=== PATIENT | female | born 1980 | race Caucasian/White ===

== ENCOUNTER 2017-01-16 01:10 | Emergency (ER) | payer OTHER ==
[~2017-01-16] VITALS: Ht 170.2 cm; Wt 63.5 kg
[~2017-01-16 01:10] MED LIST: ATI.5 PO; LORA-476 PO; METO25TA PO
[2017-01-16 01:29] VITALS: BP 105/73
--- NOTE | 2017-01-16 02:58 | NUR ---
Patient to OF.
--- NOTE | 2017-01-16 03:00 | NUR ---
37 Y/O HERE W/C/O MED REFILL ON METROPOLOL. DENIES ANY PAIN. ER MD NOTIFIED. NO S/S OF DISTRESS NOTED.
[2017-01-16 03:25] VITALS: BP 101/68
--- NOTE | 2017-01-16 03:25 | NUR ---
Patient discharged with v/s stable. Written and verbal after care instructions given and explained. Patient alert, oriented and verbalized understanding of instructions. Ambulatory with steady gait. All questions addressed prior to discharge. ID band removed. Patient advised to follow up with PMD. Rx of METOPROLOL 25MG given. Patient educated on indication of medication including possible reaction and side effects. Opportunity to ask questions provided and answered.
== END 2017-01-16 03:25 | disposition home or self-care (01) ==
LOC: MED 01:10
DX: Z76.0 Encounter for issue of repeat prescription (principal); F41.9 Anxiety disorder, unspecified; J45.909 Unspecified asthma, uncomplicated; F17.210 Nicotine dependence, cigarettes, uncomplicated; Z71.6 Tobacco abuse counseling
CPT/HCPCS: 99283

== ENCOUNTER 2017-03-13 23:17 | Emergency (ER) | payer OTHER ==
[~2017-03-13] VITALS: Ht 170.2 cm; Wt 61.2 kg
[~2017-03-13 23:17] MED LIST changes: -ATI.5 PO; +ATIVAN0.5 MG PO; +ATIVAN1 MG PO; +LOPRESSOR25 MG PO; -LORA-476 PO; -METO25TA PO; +SEROQUEL25 MG PO; +SUDAFED30 M1; +VICODIN 5/500 M1 TAB; +VICODIN 5/500 M1 TAB PO
[2017-03-13 23:31] VITALS: BP 137/84
--- NOTE | 2017-03-14 00:36 | NUR ---
PATIENT AMBULATED TO OF2.
--- NOTE | 2017-03-14 00:39 | NUR ---
37Y/F PT. PRESENTS TO ED WITH C/O ANXIETY X 6 HRS.PT. ATATES DRANK BEER AND SMOKE THEN FELT HEART PALPITATION. TOOK METOPROLOL 30 MINS BEFORE PT. ARRIVED FOR PALPITATION BUT STILL EXIST. HX. TACHY CARDIA, ON METOPROLOL. AAO X4, AMBULATORY WITH STEADY GAIT. RESPIRATIONS ROOM AIR, EVEN AND UNLABORED. NO C/O PAIN AND DISCOMFORT AT THIS TIME. VSS, NO S/SX OF DISTRESS. ER MD MADE AWARE OF PT. STATUS.
[2017-03-14 01:11] VITALS: BP 120/74
--- NOTE | 2017-03-14 01:24 | NUR ---
PATIENT BEING EVALUATED BY DR. ESPINOZA.
--- NOTE | 2017-03-14 01:30 | NUR ---
PATIENT ELOPED FROM FACILITY. DISCHARGE INSTRUCTIONS NOT GIVEN TO PATIENT. DR. Zamora NOTIFIED.
== END 2017-03-14 01:30 | disposition left against medical advice (07) ==
LOC: MED 23:17
DX: F41.9 Anxiety disorder, unspecified (principal); I10 Essential (primary) hypertension; J45.909 Unspecified asthma, uncomplicated; F17.210 Nicotine dependence, cigarettes, uncomplicated

== ENCOUNTER 2017-11-16 12:24 | Emergency (ER) | payer OTHER ==
[~2017-11-16] VITALS: Ht 170.2 cm; Wt 57.4 kg
[~2017-11-16 12:24] MED LIST changes: +ATI.5 PO; -ATIVAN0.5 MG PO; -ATIVAN1 MG PO; -LOPRESSOR25 MG PO; +LORA-476 PO; +METO25TA PO; -SEROQUEL25 MG PO; -SUDAFED30 M1; -VICODIN 5/500 M1 TAB; -VICODIN 5/500 M1 TAB PO
[2017-11-16 12:29] VITALS: BP 146/85
--- NOTE | 2017-11-16 12:32 | NUR ---
PT AA&OX4 WITH EVEN AND STEADY GAIT; PT TO LOBBY AWAITING OPEN BED.
--- NOTE | 2017-11-16 14:01 | NUR ---
PATIENT IS A 37 YO FEMALE BIB SELF FOR MEDICATION REFILL FOR BETA POLA HAS INCREASED HEART FROM DRINKING CAFFIENE AWAKE AND ALERT DENIES PAIN NO DISTRESS NOTED.
[2017-11-16 14:16] VITALS: BP 146/85
--- NOTE | 2017-11-16 14:17 | NUR ---
Patient discharged with v/s stable. Written and verbal after care instructions given and explained. Patient alert, oriented and verbalized understanding of instructions. Ambulatory with steady gait. All questions addressed prior to discharge. ID band removed. Patient advised to follow up with PMD. Rx of METOPROLOL given. Patient educated on indication of medication including possible reaction and side effects. Opportunity to ask questions provided and answered.
== END 2017-11-16 14:17 | disposition home or self-care (01) ==
LOC: MED 12:24
DX: Z76.0 Encounter for issue of repeat prescription (principal); R00.0 Tachycardia, unspecified; Z79.899 Other long term (current) drug therapy
CPT/HCPCS: 99283

== ENCOUNTER 2018-01-25 19:18 | Emergency (ER) | payer OTHER ==
[~2018-01-25] VITALS: Ht 170.2 cm; Wt 59.0 kg
[2018-01-25 19:26] VITALS: BP 110/82
--- NOTE | 2018-01-25 19:45 | NUR ---
PT.AMBULATED TO ER CHB
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
--- NOTE | 2018-01-25 20:10 | NUR ---
DR. BELTRAN PERFORMS SUTURE AT BED SIDE. 1% LIDOCAINE INJ SUBQ 3 ML, NDAR.
[2018-01-25] MEDS ORDERED: LIDOCAINE MPF 1% - **ER/OR** 5 ML ONE (20:22)
--- NOTE | 2018-01-25 20:45 | NUR ---
Patient discharged with v/s stable. Written and verbal after care instructions given and explained. Patient verbalized understanding. Ambulatory with steady gait. All questions addressed prior to discharge. Advised to follow up with PMD.
[2018-01-26 02:22] VITALS: BP 110/82
== END 2018-01-25 20:45 | disposition home or self-care (01) ==
LOC: MED 19:18
DX: S61.411A Laceration without foreign body of right hand, initial encounter (principal); W25.XXXA Contact with sharp glass, initial encounter; Y93.89 Activity, other specified; Y92.89 Other specified places as the place of occurrence of the external cause; Y99.8 Other external cause status
CPT/HCPCS: 12001; 73130; 73660; 99284; J2001

== ENCOUNTER 2019-02-24 03:55 | Emergency (ER) | payer OTHER ==
[~2019-02-24] VITALS: Ht 172.7 cm; Wt 59.0 kg
[2019-02-24 04:03] VITALS: BP 121/60
--- NOTE | 2019-02-24 04:04 | NUR ---
TO BED # 09 AMBULATORY
--- NOTE | 2019-02-24 04:07 | NUR ---
PT AMBULATED TO BED #9
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
--- NOTE | 2019-02-24 04:15 | NUR ---
Dr. Feliz evaluating patient at bedside.
[2019-02-24 04:30] VITALS: BP 121/60
--- NOTE | 2019-02-24 04:30 | NUR ---
Patient discharged with v/s stable. Written and verbal after care instructions given and explained. Patient verbalized understanding. Ambulatory with to car. All questions addressed prior to discharge. Advised to follow up with PMD.
== END 2019-02-24 04:30 | disposition home or self-care (01) ==
LOC: MED 03:55
DX: R20.0 Anesthesia of skin (principal); T42.6X5A Adverse effect of other antiepileptic and sedative-hypnotic drugs, initial encounter; F17.210 Nicotine dependence, cigarettes, uncomplicated; Z79.899 Other long term (current) drug therapy; Y92.89 Other specified places as the place of occurrence of the external cause
CPT/HCPCS: 99281

== ENCOUNTER 2019-04-07 01:40 | Emergency (ER) | payer OTHER ==
[~2019-04-07] VITALS: Ht 172.7 cm; Wt 59.0 kg
[2019-04-07 01:49] VITALS: BP 134/78
[2019-04-07 01:52] VITALS: BP 134/78
--- NOTE | 2019-04-07 01:52 | NUR ---
TO LOBBY A/W BED , AMBULATORY
--- NOTE | 2019-04-07 02:38 | NUR ---
PATIENT LEFT WITHOUT BEING SEEN BY DR. SMALL. NO FURTHER CARE PROVIDED FOR PATIENT.
== END 2019-04-07 02:38 | disposition left against medical advice (07) ==
LOC: MED 01:40
DX: R20.0 Anesthesia of skin (principal); Z53.21 Procedure and treatment not carried out due to patient leaving prior to being seen by health care provider

== ENCOUNTER 2019-04-15 03:12 | Emergency (ER) | payer OTHER ==
[~2019-04-15] VITALS: Ht 172.7 cm; Wt 63.5 kg
[2019-04-15 03:15] VITALS: BP 127/84
--- NOTE | 2019-04-15 03:15 | NUR ---
TO BED # 11 AMBULATORY
[2019-04-15 03:30] VITALS: BP 127/84
--- NOTE | 2019-04-15 03:30 | NUR ---
39 Y/O F PRESENTED TO ED WITH C/O PALPITATIONS X 2DAYS. AAOX4. PER PT, " A FEW DAYS AGO I DRANK 3-4 CUPS OF COFFEE TO KEEP ME AWAKE. TODAY I DRANK MONSTER AND NOW MY HEART FEELS FUNNY." PT EXPERIENCED THESE PALPITATIONS X6 MONTHS AGO AND WAS GIVEN METOPROLOL, PER PT "IT WAS EFFECTIVE". PT DID NOT FOLLOW UP WITH PCP BECAUSE " I DONT WANT MY DOCTOR TO THINK SOMETHING IS REALLY WRONG WITH ME". HR 82, NSR. ERMD NOTIFIED. WILL CONTINUE TO MONITOR.
== END 2019-04-15 03:57 | disposition home or self-care (01) ==
LOC: MED 03:12
DX: R00.2 Palpitations (principal); Z79.899 Other long term (current) drug therapy
CPT/HCPCS: 93005; 99283

== ENCOUNTER 2019-04-15 11:13 | Emergency (ER) | payer OTHER ==
[~2019-04-15] VITALS: Ht 172.7 cm; Wt 61.2 kg
[2019-04-15 11:16] VITALS: BP 122/78
--- NOTE | 2019-04-15 11:26 | NUR ---
PATIENT AMBULATED TO ER BED 8.
--- NOTE | 2019-04-15 11:27 | NUR ---
PATIENT PRESENTS TO ED WITH C/O HEART PALPITATIONS. PT DENIES ANY CHEST PAIN, SHE STATED SHE CONSUMED A "COFFEE AND MONSTER BLEND" YESTERDAY. +INSOMNIA. DENIES N/V; HR 98 AT THIS TIME. PT DENIES SOB; PATIENT STATES PAIN OF 0/10 AT THIS TIME; VSS; PATIENT POSITIONED FOR COMFORT; HOB ELEVATED; BEDRAILS UP X1; BED DOWN. PENDING ER MD EVALUATION.
[2019-04-15 11:35] VITALS: BP 121/83
[2019-04-15] MEDS ORDERED: NACL 0.9% 1,000 ML IV ONE (11:45)
--- NOTE | 2019-04-15 11:54 | NUR ---
Patient does not wish to proceed with medical care recommended by Dr Feliz. Patient given information related to possible complications, up to and including , which could occur as a result of leaving hospital at this time. Patient verbalizes understanding of risks involved leaving against medical advice. Patient has signed AMA form.
[2019-04-15 12:05] LABS: BARBITURATE, URINE NEG. ng/ml (NEG <=200); BENZODIAZEPINE, URINE NEG. ng/mL (NEG <=200); CANNABINOID, URINE NEG. ng/mL (NEG <=50); COCAINE, URINE NEG. ng/mL (NEG <=300); OPIATE, URINE NEG. ng/mL (NEG <=2000); PHENCYCLIDINE SCREEN,URINE NEG. ng/mL (NEG <=25)
== END 2019-04-15 11:50 | disposition left against medical advice (07) ==
LOC: MED 11:13
DX: R07.89 Other chest pain (principal); R00.2 Palpitations; F17.210 Nicotine dependence, cigarettes, uncomplicated; Z79.899 Other long term (current) drug therapy
CPT/HCPCS: 80305; 81002; 81025; 93005; 99284

== ENCOUNTER 2019-04-15 16:28 | Emergency (ER) | payer OTHER ==
[~2019-04-15] VITALS: Ht 172.7 cm; Wt 61.2 kg
[2019-04-15 16:31] VITALS: BP 141/103
--- NOTE | 2019-04-15 16:31 | NUR ---
PT C/O COUGH, FLUID FROM RIGHT EYE & R EAR AFTER LEFT ER FOR HEART PALPITATION X 6 HOUR. MD TO SEE THE PT. RESTING IN [facility] AT THIS TIME. WILL COTNTINUE TO QING PT.
--- NOTE | 2019-04-15 16:37 | NUR ---
PT AMBULATED TO ER CHAIR C
[2019-04-15] MEDS ORDERED: NACL 0.9% 1,000 ML IV ONE (16:55)
--- NOTE | 2019-04-15 16:56 | NUR ---
pt amb to er bed 11
[2019-04-15] MEDS: KETOROLAC 15 MG/ML VIAL IVP ONE ×2 (17:09→17:50)
[2019-04-15 17:15] VITALS: BP 141/103
--- NOTE | 2019-04-15 17:15 | NUR ---
PT LEFT WITHOUT SIGNING PAPER. REFUSED ALL MEDS. IV TAKEN OUT. PT WALKED OUT OF THE HOSPITAL BY HERSELF. Addendum: 04/15/19 at 1758 by MEDBSS PATIENT ELOPED FROM FACILITY. DISCHARGE INSTRUCTIONS NOT GIVEN TO PATIENT. DR. MIMS NOTIFIED.
== END 2019-04-15 17:15 | disposition home or self-care (01) ==
LOC: MED 16:28
DX: R00.0 Tachycardia, unspecified (principal); F17.210 Nicotine dependence, cigarettes, uncomplicated; Z79.899 Other long term (current) drug therapy
CPT/HCPCS: 99283; J7030; J1885

== ENCOUNTER 2019-04-16 08:02 | Emergency (ER) | payer OTHER ==
[~2019-04-16] VITALS: Ht 172.7 cm; Wt 63.5 kg
[2019-04-16 08:06] VITALS: BP 110/86
--- NOTE | 2019-04-16 08:20 | NUR ---
PT BIB SELD C/O DRY THROAT, COUGH ,NOSE PAIN X 2 WEEKS. PT REPORTS ITCHY/SHARP PAIN IN NOSE AND THROAT AT 6/10. PT REPORTS PRODUCTIVE COUGH WITH THICK GEL LIKE CLEAR MUCUS. PT REPORTS DIFFICULTY SLEEPING AND GENERALIZED WEAKNESS. PT WAS SEEN HERE X 3 TIMES YESTERDAY & WENT TO [facility] YESTERDAY. MED HX;DENIES RX:TYLENOL, ADVIL, METOPROLOL
[2019-04-16 08:58] LABS: APPEARANCE,URINE CLEAR (CLEAR); BILIRUBIN,URINE 1+ (NEGATIVE); BLOOD, URINE 3+ (NEGATIVE); COLOR,URINE YELLOW (YELLOW); LEUKOCYTE ESTERASE ,URINE NEGATIVE (NEGATIVE); NITRITE, URINE NEGATIVE (NEGATIVE); UGLUCOSE NEGATIVE (NEGATIVE)
[2019-04-16 09:03] LABS: BARBITURATE, URINE NEG. ng/ml (NEG <=200); BENZODIAZEPINE, URINE NEG. ng/mL (NEG <=200); CANNABINOID, URINE NEG. ng/mL (NEG <=50); COCAINE, URINE NEG. ng/mL (NEG <=300); OPIATE, URINE NEG. ng/mL (NEG <=2000); PHENCYCLIDINE SCREEN,URINE NEG. ng/mL (NEG <=25)
[2019-04-16] MEDS ORDERED: ALBUTEROL SULFATE/IPRATROPIU 3 ML SOL IH ONE (09:10)
[2019-04-16] MEDS ORDERED: hydrOXYzine HCL 25 MG TAB PO ONE (09:10)
[2019-04-16] MEDS ORDERED: predniSONE 20 MG TAB PO ONE (09:10)
[2019-04-16 09:18] LABS: WBC,URINE 0-5 /HPF (0-5)
--- NOTE | 2019-04-16 09:39 | NUR ---
[facility] THERAPY AND RES[IRATORY DRUG GIVEN ORDERED ENCOURAGED PATIENT FOR INTERMITTENT DEEP BREATHING DURING THERAPY
[2019-04-16 09:50] VITALS: BP 109/59
--- NOTE | 2019-04-16 09:51 | NUR ---
Patient discharged with v/s stable. Written and verbal after care instructions given and explained. Patient alert, oriented and verbalized understanding of instructions. Ambulatory with steady gait. All questions addressed prior to discharge. ID band removed. Patient advised to follow up with PMD. Rx of FLONASE, ZYRTEC given. Patient educated on indication of medication including possible reaction and side effects. Opportunity to ask questions provided and answered.
--- NOTE | 2019-04-16 09:51 | NUR ---
Note triny in EDM - 04/16/19 at 0953 by MEDEZS Patient discharged with v/s stable. Written and verbal after care instructions given and explained. Patient alert, oriented and verbalized understanding of instructions. Ambulatory with steady gait. All questions addressed prior to discharge. ID band removed. Patient advised to follow up with PMD. Rx of AMIRAH BANG given. Patient educated on indication of medication including possible reaction and side effects. Opportunity to ask questions provided and answered.
== END 2019-04-16 09:51 | disposition home or self-care (01) ==
LOC: MED 08:02
DX: J30.9 Allergic rhinitis, unspecified (principal); F25.0 Schizoaffective disorder, bipolar type; Z79.899 Other long term (current) drug therapy
CPT/HCPCS: 80305; 81001; 81025; 94640; 99283; J7512; J7620

== ENCOUNTER 2019-04-17 18:28 | Emergency (ER) | payer OTHER ==
[~2019-04-17] VITALS: Ht 172.7 cm; Wt 63.5 kg
[2019-04-17 19:05] VITALS: BP 119/79
--- NOTE | 2019-04-17 19:38 | NUR ---
PT AMBULATED TO CHAIR C
--- NOTE | 2019-04-17 19:45 | NUR ---
PT IS A 39 Y/O FEMALE WHO PRESENTS TO THE ED C/O COLD SYMPTOMS. PT STATES THAT IT HAS BEEN BOTHERING HER X1 DAY. PT REPORTS SNEEZING AND CHEST COLD. PT REPORTS 10/10 ACHING CHEST WALL PAIN THAT DOES NOT RADIATE. PT DENIES SOB, N/V/D. PT AWAKE AND ALERT, RR EVEN/UNLABORED. PT REPOSITIONED FOR COMFORT, BED IN LOWEST POSITION. ER PROVIDER NOTIFIED. WILL CONTINUE TO MONITOR.
[2019-04-17] MEDS ORDERED: LORATADINE 10 MG TAB PO ONE (20:05)
[2019-04-17 20:10] VITALS: BP 119/79
--- NOTE | 2019-04-17 20:10 | NUR ---
Patient discharged with v/s stable. Ambulatory with steady gait. Pt left prior to ACI.
== END 2019-04-17 20:10 | disposition home or self-care (01) ==
LOC: MED 18:28
DX: J30.9 Allergic rhinitis, unspecified (principal); Z79.899 Other long term (current) drug therapy
CPT/HCPCS: 99282

== ENCOUNTER 2019-04-30 20:09 | Emergency (ER) | payer OTHER ==
[~2019-04-30] VITALS: Ht 172.7 cm; Wt 63.5 kg
[2019-04-30 20:28] VITALS: BP 125/81
--- NOTE | 2019-04-30 20:28 | NUR ---
TO BED # 01 AMBULATORY
--- NOTE | 2019-04-30 20:40 | NUR ---
39 YO F BIB SELF PRESENTS TO ED C/O 06/10 VAGINAL PAIN X TODAY. PT STATES SHE WAS STRAINING DURING A LARGE BM TODAY AND FELT A "PAINFUL POP". PT STATES SHE BELIEVES HER IUD BECAME DISLODGED. PT DENIES VAGINAL BLEEDING/DISCHARGE. PT STATES "I JUST WANT TO HAVE THE IUD REMOVED BECAUSE IT IS CAUSING ME PAIN AND ANXIETY." -- PT AWAKE, ALERT, FIDGETING, COOPERATIVE. PT APPEARS ANXIOUS. BEHAVIOR SLIGHTLY ERRATIC. ANSWERS QUESTIONS APPROPRIATELY. -- SKIN PINK, WARM, DRY. BREATHING EVEN, UNLABORED. PMH-- DENIES
--- NOTE | 2019-04-30 21:15 | NUR ---
DR. BELTRAN PERFORMING IUD REMOVAL AT BEDSIDE WITH FEMALE RN SHRINKING MACHINE OPERATOR. VAGINAL SWAB COLLECTED. IUD REMOVED SUCCESSFULLY. PT TOLERATED PROCEDURE WELL.
--- NOTE | 2019-04-30 21:30 | NUR ---
PROVIDED PT WITH URINE CUP. AWAITING URINE SAMPLE.
[2019-04-30 22:19] VITALS: BP 122/76
--- NOTE | 2019-04-30 22:19 | NUR ---
Patient discharged with v/s stable. Written and verbal after care instructions given and explained. Patient alert, oriented and verbalized understanding of instructions. Ambulatory with steady gait. All questions addressed prior to discharge. ID band removed. Patient advised to follow up with PMD. Rx of Doxycycline given. Patient educated on indication of medication including possible reaction and side effects. Opportunity to ask questions provided and answered. Pt discharged by Dr. Josue.
[2019-05-03 06:09] LABS: CHLAMYDIA TRACHOMATIS AMP DNA Negative (Negative)
== END 2019-04-30 22:19 | disposition home or self-care (01) ==
LOC: MED 20:09
DX: N76.0 Acute vaginitis (principal); Z79.899 Other long term (current) drug therapy
CPT/HCPCS: 36415; 87210; 87491; 99283

== ENCOUNTER 2019-05-20 20:05 | Emergency (ER) | payer OTHER ==
[~2019-05-20] VITALS: Ht 172.7 cm; Wt 61.2 kg
[2019-05-20 20:22] VITALS: BP 135/86
[2019-05-20 20:55] VITALS: BP 135/86
--- NOTE | 2019-05-20 20:55 | NUR ---
PT C/O OF LEFT LOWER SUPRAPUBIC PAIN X4 DAYS. PAIN LEVEL 4/10, CRAMPING. PT STATED "I THINK IT MIGHT BE PERIOD CRAMPS." PT DENIED MEDICAL HX. SAFETY MEASURES IN PLACE. WAITING FOR ERMD TO EVALUATE PT.
[2019-05-20] MEDS ORDERED: NACL 0.9% 1,000 ML IV ONE (21:05)
--- NOTE | 2019-05-20 21:20 | NUR ---
PT REFUSED IV AND STATED "I CAN JUST DRINK WATER." ERMD NOTIFIED.
[2019-05-20 21:24] LABS: BASOPHILS % (AUTO) 0.2 % (0.0-2.0); EOSINOPHILS % (AUTO) 0.6 % (0.0-4.0); HEMOGLOBIN 13.4 g/dL (12.0-16.0); MEAN CORPUSCULAR HEMOGLOBIN 33 pg (27-31); MEAN CORPUSCULAR HGB CONC 34 g/dL (33-37); MEAN CORPUSCULAR VOLUME 97.8 fL (80-94); MONOCYTES # (AUTO) 0.9 K/uL (0.8-1.0); MONOCYTES % (AUTO) 11.1 % (1.7-9.3); NEUTROPHILS # (AUTO) 4.8 K/uL (1.8-7.7); NEUTROPHILS % (AUTO) 62.1 % (42.2-75.2); PLATELET COUNT (AUTO) 233 K/uL (140-450); RED BLOOD CELL COUNT(AUTO) 4.09 MIL/uL (4.20-5.40); RED CELL DISTRIBUTION WIDTH 13.4 % (11.6-13.7); WHITE BLOOD COUNT (AUTO) 7.7 K/uL (4.8-10.8)
[2019-05-20 21:35] LABS: APPEARANCE,URINE HAZY (CLEAR); BILIRUBIN,URINE NEGATIVE (NEGATIVE); BLOOD, URINE NEGATIVE (NEGATIVE); COLOR,URINE YELLOW (YELLOW); LEUKOCYTE ESTERASE ,URINE NEGATIVE (NEGATIVE); NITRITE, URINE NEGATIVE (NEGATIVE); UGLUCOSE NEGATIVE (NEGATIVE)
[2019-05-20 21:36] LABS: ANION GAP 11.1 (8-16); CARBON DIOXIDE 27.6 mmol/L (21-32); CHLORIDE 106 mmol/L (98-107); CREATININE 0.8 mg/dL (0.6-1.3); GFR ARICAN-AMERICAN 103 mL/min (>90); GLUCOSE 97 mg/dL (74-106); POTASSIUM 4.7 mmol/L (3.5-5.1); SODIUM SERUM 140 mmol/L (136-145); UREA NITROGEN, BLOOD 14 mg/dL (7-18)
[2019-05-20 21:43] LABS: BARBITURATE, URINE NEG. ng/ml (NEG <=200); BENZODIAZEPINE, URINE NEG. ng/mL (NEG <=200); CANNABINOID, URINE NEG. ng/mL (NEG <=50); COCAINE, URINE NEG. ng/mL (NEG <=300); OPIATE, URINE NEG. ng/mL (NEG <=2000); PHENCYCLIDINE SCREEN,URINE NEG. ng/mL (NEG <=25)
[2019-05-20 21:46] LABS: RBC,URINE 0-5 /HPF (0-5); WBC,URINE 0-5 /HPF (0-5)
[2019-05-20 21:47] LABS: CALCIUM OXALATE CRYSTALS,UR 0-10 /HPF (None Seen); URINE AMORPHOUS URATE 1+ /HPF (None Seen)
[2019-05-20 21:49] LABS: ALBUMIN 3.8 g/dL (3.4-5.0); ASPARTATE AMINOTRANSFERASE 13 U/L (15-37); LIPASE 141 U/L (73-393); THYROID STIMULATING HORMONE 0.94 uIU/mL (0.34-3.74); TOTAL BILIRUBIN 0.2 mg/dL (0.0-1.0)
--- NOTE | 2019-05-20 22:02 | NUR ---
PT REFUSED ULTRASOUND, ERMD MADE AWARE.
--- NOTE | 2019-05-20 22:07 | NUR ---
Patient does not wish to proceed with medical care recommended by DR. WILLIS Patient given information related to possible complications, up to and including , which could occur as a result of leaving hospital at this time. Patient verbalizes understanding of risks involved leaving against medical advice. Patient has signed AMA form.
== END 2019-05-20 22:14 | disposition left against medical advice (07) ==
LOC: MED 20:05
DX: R00.0 Tachycardia, unspecified (principal); Z79.899 Other long term (current) drug therapy; Z76.0 Encounter for issue of repeat prescription
CPT/HCPCS: 36415; 80053; 80305; 81001; 81025; 83690; 84443; 85025; 93005; 99284; G0482

== ENCOUNTER 2019-05-26 15:49 | Emergency (ER) | payer OTHER ==
[~2019-05-26] VITALS: Ht 172.7 cm; Wt 54.9 kg
[2019-05-26 15:54] VITALS: BP 113/69
--- NOTE | 2019-05-26 16:00 | NUR ---
PATIENT AMBULATED TO ER BED 12.
--- NOTE | 2019-05-26 16:16 | NUR ---
39 Y FEMALE BIB SELF, PT STATES SHE WAS TOLD BY DR. WILLIS THAT SHE "NEEDED TO RETURN FOR A PELVIC EXAM". SHE WAS SEEN HERE AT [facility] 05/20/19. PT STATES SHE WAS GIVEN A PRESCRIPTION FOR METOPROLOL FOR HER HIGH HR. HR RIGHT NOW IS 139. PT IS DISPLAYING DISORGANIZED THOUGHTS/SCATTERED THOUGH PROCESS. DENIES PAIN AT THIS TIME. PATIENT STATES THAT SHE NEEDS MORE METROPOLOL BECAUSE SHE HAS FINISHED HER LAST PRESCRIPTION. AA0X4. BED IS DOWN, LOCKED, BED RAIL X 1, ERMD TO SEE PT. HX: NONE RX: METOPROLOL
--- NOTE | 2019-05-26 16:17 | NUR ---
PT ALSO EXPERIENCED TACHYCARDIA LAST ER VISIT
--- NOTE | 2019-05-26 16:22 | NUR ---
PT PLACED ON WATER QUALITY CONTROL ENGINEER DUE TO PTS HR
--- NOTE | 2019-05-26 16:40 | NUR ---
DR WOLFF AT BEDSIDE
[2019-05-26 16:59] VITALS: BP 115/70
--- NOTE | 2019-05-26 16:59 | NUR ---
Patient discharged with v/s stable. Written and verbal after care instructions given and explained. Patient alert, oriented and verbalized understanding of instructions. Ambulatory with steady gait. All questions addressed prior to discharge. ID band removed. Patient advised to follow up with PMD IN 2-3 DAYS. Rx of METROPOLOL SUCCINATE given. Patient educated on indication of medication including possible reaction and side effects. Opportunity to ask questions provided and answered.
== END 2019-05-26 16:59 | disposition home or self-care (01) ==
LOC: MED 15:49
DX: F41.9 Anxiety disorder, unspecified (principal); Z79.899 Other long term (current) drug therapy; F17.200 Nicotine dependence, unspecified, uncomplicated
CPT/HCPCS: 81002; 81025; 99283

== ENCOUNTER 2019-06-06 10:38 | Emergency (ER) | payer OTHER ==
[~2019-06-06] VITALS: Ht 172.7 cm; Wt 59.0 kg
[2019-06-06 10:50] VITALS: BP 124/67
--- NOTE | 2019-06-06 11:05 | NUR ---
39 Y/O FEMALE BIB SELF C/O OF FATIGUE, DIZZINESS AND HAY FEVER. SHE STATED SHE CAME INTO [facility] A MONTH AGO FOR HAY FEVER AND WAS PRESCRIBED ANTIBIOTICS AND WANTED AN ANTIBIOTICS PRESCRIPTION. PT. ALSO STATED THAT SHE ALSO TOOK A METOPROLOL PRIOR TO COMING INTO THE ED. HR IS 130. PMH:UNKNOWN RX: METOPROLOL ALLERGIES: HAY FEVER
--- NOTE | 2019-06-06 11:19 | NUR ---
PROVIDED COUPLE CUPS OF WATER TO PT . ENCOURAGED TO DRINK PLENTY OF WATER
[2019-06-06 11:35] VITALS: BP 124/67
== END 2019-06-06 11:32 | disposition home or self-care (01) ==
LOC: MED 10:38
DX: F41.9 Anxiety disorder, unspecified (principal); R42 Dizziness and giddiness; F17.200 Nicotine dependence, unspecified, uncomplicated; Z79.899 Other long term (current) drug therapy
CPT/HCPCS: 99281

== ENCOUNTER 2019-06-30 06:58 | Emergency (ER) | payer OTHER ==
[~2019-06-30] VITALS: Ht 167.6 cm; Wt 54.4 kg
[2019-06-30 07:14] VITALS: BP 105/81
--- NOTE | 2019-06-30 07:19 | NUR ---
PT REFUSED TO BE SEEN ; WHEN ASKED FOR URINE SAMPLE---STATED I WILL BE BACK IF I DONT FEEL BETTER---AMBULATED OUT OF THE ER WITH STEADY GAIT
== END 2019-06-30 08:30 | disposition left against medical advice (07) ==
LOC: MED 06:58
DX: F41.9 Anxiety disorder, unspecified (principal); Z53.21 Procedure and treatment not carried out due to patient leaving prior to being seen by health care provider
CPT/HCPCS: 99281

== ENCOUNTER 2019-06-30 07:45 | Emergency (ER) | payer OTHER ==
[~2019-06-30] VITALS: Ht 167.6 cm; Wt 54.4 kg
[2019-06-30 07:49] VITALS: BP 105/89
--- NOTE | 2019-06-30 08:15 | NUR ---
DR VALENTINE AT BEDSIDE FOR PT EVALUATION
--- NOTE | 2019-06-30 08:16 | NUR ---
C/O ANXIETY FROM NOT HAVING A REGULAR PERIOD ; HAS BEEN HAVING CRAMP AND LIGHT MENSTRAL CYCLE. STATES "I THOUGHT I WAS GOING THROUGH MENOPAUSE" IUD REMOVED 2 MONTHS AG0. PT TACHY AT 132. PT STATES SHE IS TACHYCARDIA FROM DRINKING COFFEE AND SMOKING. AA0X4. BED IS DOWN, LOCKED, BED RAIL X 1, ERMD TO SEE PT. PATIENT WAS TRIAGED THIS AM AND LWBS. HX--DENIES RX---METOPROLOL ( ONLY WHEN I DRINK COFFEE) DENIES METH OR DRUG USE
--- NOTE | 2019-06-30 08:25 | NUR ---
PT AMB TO RESTROOM WITH STEADY GAIT
[2019-06-30 09:40] VITALS: BP 105/89
--- NOTE | 2019-06-30 09:40 | NUR ---
Patient discharged with v/s stable. Written and verbal after care instructions given and explained. Patient alert, oriented and verbalized understanding of instructions. Ambulatory with steady gait. All questions addressed prior to discharge. ID band removed. Patient advised to follow up with PMD. Opportunity to ask questions provided and answered.
== END 2019-06-30 09:40 | disposition home or self-care (01) ==
LOC: MED 07:45
DX: N92.6 Irregular menstruation, unspecified (principal); R00.0 Tachycardia, unspecified; Z79.899 Other long term (current) drug therapy
CPT/HCPCS: 81002; 81025; 93005; 99283

== ENCOUNTER 2019-10-07 07:04 | Emergency (ER) | payer OTHER ==
[~2019-10-07] VITALS: Ht 172.7 cm; Wt 57.6 kg
[2019-10-07 07:12] VITALS: BP 142/113
--- NOTE | 2019-10-07 08:34 | NUR ---
pt refused lab and bolus; left after being seen. Came up to Nurses Station to say she is leaving and does not feel labs or fluids is necessary at this time. ambulated out of the ER with steady gait
[2019-10-07] MEDS: NACL 0.9% 1,000 ML IV ONE (08:37)
--- NOTE | 2019-10-07 08:37 | NUR ---
PT REFUSED BLOOD AND IV TREATMENT. PT REFUSED TO SIGN AMA PAPERS. PT ELOPED. DR HANSEN INFORMED..
== END 2019-10-07 08:37 | disposition left against medical advice (07) ==
LOC: MED 07:04
DX: K59.00 Constipation, unspecified (principal); Z79.899 Other long term (current) drug therapy
CPT/HCPCS: 99281

== ENCOUNTER 2019-10-07 14:56 | Emergency (ER) | payer OTHER ==
--- NOTE | 2019-10-07 15:18 | NUR ---
PATIENT LEFT WITHOUT BEING SEEN BY DR. DELUCA. NO FURTHER CARE PROVIDED FOR PATIENT.
== END 2019-10-07 15:18 | disposition left against medical advice (07) ==
LOC: MED 14:56
DX: Z53.21 Procedure and treatment not carried out due to patient leaving prior to being seen by health care provider (principal)

== ENCOUNTER 2019-12-14 12:17 | Emergency (ER) | payer OTHER ==
[~2019-12-14] VITALS: Ht 172.7 cm; Wt 61.2 kg
[2019-12-14 12:23] VITALS: BP 129/85
--- NOTE | 2019-12-14 12:35 | NUR ---
39 Y/O C/O RAPID HEART RATE AFTER DRINKING CAFFEINE TODAY. PT H/R IN THE ED IS 98, VSS. PT DENIES CHEST PAIN, N/V. STATE SHE DOESN'T WANT A H/R OF 120 LIKE IT WAS AT HOME. PT TOOK HER METROPOLOL TO TRY AND BRING DOWN THE H/R. PT ON MONITOR, VSS. PT RESTING COMFORTABLY. NKA
--- NOTE | 2019-12-14 12:55 | NUR ---
EMT AT BEDSIDE PERFORMING ORDERED EKG.
--- NOTE | 2019-12-14 12:59 | NUR ---
DR FONG AT BEDSIDE EXAMINING PATIENT.
[2019-12-14 13:25] VITALS: BP 129/85
== END 2019-12-14 13:26 | disposition home or self-care (01) ==
LOC: MED 12:17
DX: R00.2 Palpitations (principal); F41.9 Anxiety disorder, unspecified; Z79.899 Other long term (current) drug therapy
CPT/HCPCS: 93005; 99283

== ENCOUNTER 2020-04-15 01:55 | Emergency (ER) | payer OTHER ==
[~2020-04-15] VITALS: Ht 170.2 cm; Wt 60.3 kg
[2020-04-15 02:04] VITALS: BP 124/44
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
--- NOTE | 2020-04-15 02:38 | NUR ---
Patient discharged with v/s stable. Written and verbal after care instructions about palpitations given and explained. Patient verbalized understanding. Ambulatory with steady gait. All questions addressed prior to discharge. Advised to follow up with PMD.
[2020-04-15 02:39] VITALS: BP 124/44
== END 2020-04-15 02:38 | disposition home or self-care (01) ==
LOC: MED 01:55
DX: R00.2 Palpitations (principal); M54.9 Dorsalgia, unspecified; F17.210 Nicotine dependence, cigarettes, uncomplicated; Z79.899 Other long term (current) drug therapy
CPT/HCPCS: 81002; 81025; 99282

== ENCOUNTER 2020-07-16 12:26 | Emergency (ER) | payer OTHER ==
[~2020-07-16] VITALS: Ht 172.7 cm; Wt 61.2 kg
[2020-07-16 12:30] VITALS: BP 144/93
--- NOTE | 2020-07-16 12:30 | NUR ---
PATIENT AMBULATED TO ER BED 6.
--- NOTE | 2020-07-16 13:00 | NUR ---
C/O PALPITATIONS SINCE THIS MORNING S/P DRINKING COFFEE AND TAKING 3 METOPROLOL PILLS 25MG WITHIN THE LAST 3 HOURS. DENIES ANY CHEST PAIN NO PMH NKA
--- NOTE | 2020-07-16 13:13 | NUR ---
DR. MCKNIGHT AT BEDSIDE EVALUATING PATIENT.
--- NOTE | 2020-07-16 13:13 | NUR ---
Lorena agosto in [facility] - 07/16/20 at 1315 by OMAR PATIENT AMBULATED TO ER BED 6.
--- NOTE | 2020-07-16 13:16 | NUR ---
ERMD AT BEDSIDE.
[2020-07-16 13:39] VITALS: BP 144/93
== END 2020-07-16 13:39 | disposition home or self-care (01) ==
LOC: MED 12:26
DX: R00.2 Palpitations (principal); R10.32 Left lower quadrant pain; Z79.899 Other long term (current) drug therapy; Z96.641 Presence of right artificial hip joint
CPT/HCPCS: 93005; 99283

== ENCOUNTER 2020-08-01 23:33 | Emergency (ER) | payer OTHER ==
[~2020-08-01] VITALS: Ht 172.7 cm; Wt 62.1 kg
[2020-08-01 23:53] VITALS: BP 120/75
--- NOTE | 2020-08-01 23:57 | NUR ---
PT AMBULATED TO BED 11 WITH STEADY GAIT.
--- NOTE | 2020-08-02 00:30 | NUR ---
Female Industrial Therapist accompanied female patient for ERMD EVALUATION OF ABCESS ON GENITALS.
--- NOTE | 2020-08-02 00:48 | NUR ---
Patient discharged with v/s stable. Written and verbal after care instructions given and explained. Patient alert, oriented and verbalized understanding of instructions. Ambulatory with steady gait. All questions addressed prior to discharge. ID band removed. Patient advised to follow up with PMD. Rx of keflex and motrin given. Patient educated on indication of medication including possible reaction and side effects. Opportunity to ask questions provided and answered.
== END 2020-08-02 00:48 | disposition home or self-care (01) ==
LOC: MED 23:33
DX: N76.4 Abscess of vulva (principal); Z79.899 Other long term (current) drug therapy
CPT/HCPCS: 99283

== ENCOUNTER 2020-10-08 17:28 | Emergency (ER) | payer OTHER ==
[~2020-10-08] VITALS: Ht 172.7 cm; Wt 65.8 kg
[2020-10-08 17:32] VITALS: BP 136/83
--- NOTE | 2020-10-08 17:34 | NUR ---
Patient ambulated to lobby with steady gait.
--- NOTE | 2020-10-08 18:00 | NUR ---
PATIENT LEFT WITHOUT BEING SEEN BY DR. VALENTINE. NO FURTHER CARE PROVIDED FOR PATIENT.
== END 2020-10-08 18:00 | disposition left against medical advice (07) ==
LOC: MED 17:28
DX: Z76.0 Encounter for issue of repeat prescription (principal); Z53.21 Procedure and treatment not carried out due to patient leaving prior to being seen by health care provider

== ENCOUNTER 2020-11-16 00:02 | Emergency (ER) | payer OTHER ==
[~2020-11-16] VITALS: Ht 172.7 cm; Wt 66.7 kg
[2020-11-16 00:20] VITALS: BP 129/76
--- NOTE | 2020-11-16 01:50 | NUR ---
CALLED PATIENT BACK FROM LOBBY NO RESPONSE.
--- NOTE | 2020-11-16 01:55 | NUR ---
FRANCISCOD ASSESSED PATIENT IN LOBBY.
--- NOTE | 2020-11-16 02:14 | NUR ---
PATIENT CALLED BACK FROM LOBBY NO RESPONSE.
[2020-11-16 02:24] LABS: BARBITURATE, URINE NEGATIVE ng/ml (NEG <=200); BENZODIAZEPINE, URINE NEGATIVE ng/mL (NEG <=200); CANNABINOID, URINE NEGATIVE ng/mL (NEG <=50); COCAINE, URINE NEGATIVE ng/mL (NEG <=300); OPIATE, URINE NEGATIVE ng/mL (NEG <=2000); PHENCYCLIDINE SCREEN,URINE NEGATIVE ng/mL (NEG <=25)
[2020-11-16 02:44] VITALS: BP 129/76
--- NOTE | 2020-11-16 02:44 | NUR ---
PATIENT CALLED BACK, NO RESPONS. PATIENT ELOPED FROM FACILITY.
--- NOTE | 2020-11-16 02:44 | NUR ---
PATIENT ELOPED FROM FACILITY. DISCHARGE INSTRUCTIONS NOT GIVEN TO PATIENT. NOTIFIED.
== END 2020-11-16 02:44 | disposition left against medical advice (07) ==
LOC: MED 00:02
DX: R30.9 Painful micturition, unspecified (principal); Z53.21 Procedure and treatment not carried out due to patient leaving prior to being seen by health care provider
CPT/HCPCS: 80305; 81002; 99283

== ENCOUNTER 2020-11-27 18:14 | Emergency (ER) | payer OTHER ==
[~2020-11-27] VITALS: Ht 172.7 cm; Wt 59.9 kg
[2020-11-27 18:23] VITALS: BP 117/78
[2020-11-27 20:10] VITALS: BP 117/79
== END 2020-11-27 20:10 | disposition home or self-care (01) ==
LOC: MED 18:14
DX: R00.0 Tachycardia, unspecified (principal); F17.290 Nicotine dependence, other tobacco product, uncomplicated; Z79.899 Other long term (current) drug therapy
CPT/HCPCS: 81025; 93005; 99283

== ENCOUNTER 2020-12-05 13:33 | Emergency (ER) | payer OTHER ==
[~2020-12-05] VITALS: Ht 172.7 cm; Wt 65.8 kg
[2020-12-05 13:43] VITALS: BP 125/79
--- NOTE | 2020-12-05 14:09 | NUR ---
Note [email or web address] in EDM - 12/05/20 at 1412 by [email or web address] 40/F BIB SELF C/O COUGH X 4 DAYS AND C/O VAGINAL DISCHARGE: WHITE AND C/O VAGINAL & ANAL ITCHING X 1 MONTH. [address]UD REMOVAL [address] [facility] & WAS TOLE SHE HAS YEAST INFECTION. COVCALLY TESTED NECGATIVE 2 WEEKS AGO. PMH: YEAST INFECTION
--- NOTE | 2020-12-05 14:10 | NUR ---
40/F BIB SELF C/O COUGH X 4 DAYS AND C/O VAGINAL DISCHARGE: WHITE AND C/O VAGINAL & ANAL ITCHING X 1 MONTH. [facility] & WAS TOLD SHE HAS YEAST INFECTION. COVID TESTED NEGATIVE 2 WEEKS AGO. PMH: YEAST INFECTION
--- NOTE | 2020-12-05 14:12 | NUR ---
Note undone in [facility] - 12/05/20 at 1417 by MED1 40/F BIB SELF C/O COUGH X 4 DAYS AND C/O VAGINAL DISCHARGE: WHITE AND C/O VAGINAL & ANAL ITCHING X 1 MONTH. IUD REMOVAL 1 MONTH AGO AT [facility] & WAS CHANNINGE SHE HAS YEAST INFECTION. COVCALLY TESTED NEGATIVE 2 WEEKS AGO. PMH: YEAST INFECTION Addendum: 12/05/20 at 1416 by [email or web address] Amendment undone in [facility] - 12/05/20 at 1417 by MED1 VAGINAL DISCHARE & FOUL MICHAEL.
--- NOTE | 2020-12-05 14:53 | NUR ---
Female Trial Judge accompanied female patient for Pelvic Exam.
--- NOTE | 2020-12-05 15:06 | NUR ---
STAT WET MOUNT WALKED OVER TO LAB.
[2020-12-05 15:46] VITALS: BP 125/79
--- NOTE | 2020-12-05 15:46 | NUR ---
Patient discharged with v/s stable. Written and verbal after care instructions given and explained. Patient alert, oriented and verbalized understanding of instructions. Ambulatory with steady gait. All questions addressed prior to discharge. ID band removed. Patient advised to follow up with PMD. Rx of FLONASE given. Patient educated on indication of medication including possible reaction and side effects. Opportunity to ask questions provided and answered.
== END 2020-12-05 15:46 | disposition home or self-care (01) ==
LOC: MED 13:33
DX: L29.2 Pruritus vulvae (principal); J30.89 Other allergic rhinitis; F17.210 Nicotine dependence, cigarettes, uncomplicated
CPT/HCPCS: 81002; 81025; 87210; 99283

== ENCOUNTER 2021-02-01 19:10 | Emergency (ER) | payer OTHER ==
[~2021-02-01] VITALS: Ht 172.7 cm; Wt 68.0 kg
[2021-02-01 19:33] VITALS: BP 120/85
--- NOTE | 2021-02-01 19:33 | NUR ---
TO BED AMBULATORY
--- NOTE | 2021-02-01 19:50 | NUR ---
PT ASSESSED AND EVALUATED BY SAID, NO NURSING INTERVENTIONS NEEDED AT THIS TIME.
[2021-02-01 20:04] VITALS: BP 120/85
== END 2021-02-01 20:04 | disposition home or self-care (01) ==
LOC: MED 19:10
DX: M25.552 Pain in left hip (principal); Z87.81 Personal history of (healed) traumatic fracture; Z79.899 Other long term (current) drug therapy
CPT/HCPCS: 99281

== ENCOUNTER 2021-03-05 15:19 | Emergency (ER) | payer OTHER ==
[~2021-03-05] VITALS: Ht 172.7 cm; Wt 69.6 kg
[2021-03-05 15:31] VITALS: BP 133/78
--- NOTE | 2021-03-05 16:11 | NUR ---
Pt eloped after EKG per EMT. SIERRA Ward made aware.
== END 2021-03-05 16:11 | disposition left against medical advice (07) ==
LOC: MED 15:19
DX: Z53.21 Procedure and treatment not carried out due to patient leaving prior to being seen by health care provider (principal)
CPT/HCPCS: 93005; 99281

== ENCOUNTER 2021-04-14 17:21 | Emergency (ER) | payer OTHER ==
[~2021-04-14] VITALS: Ht 170.2 cm; Wt 68.9 kg
[2021-04-14 17:28] VITALS: BP 133/83
--- NOTE | 2021-04-14 18:03 | NUR ---
PT EVALUTED BY DR. WASHBURN
[2021-04-14 18:45] LABS: APPEARANCE,URINE CLEAR (CLEAR); BILIRUBIN,URINE NEGATIVE (NEGATIVE); BLOOD, URINE TRACE-I (NEGATIVE); COLOR,URINE YELLOW (YELLOW); LEUKOCYTE ESTERASE ,URINE NEGATIVE (NEGATIVE); NITRITE, URINE NEGATIVE (NEGATIVE); PH,URINE 6.5 (5.0-9.0); UGLUCOSE NEGATIVE (NEGATIVE)
[2021-04-14 18:57] LABS: WBC,URINE 0-5 /HPF (0-5)
--- NOTE | 2021-04-14 19:15 | NUR ---
PT ASSESSMENT COMPLETED BY ADE, NO NURSING INTERVENTIONS NEEDED AT THIS TIME.
[2021-04-14 19:23] VITALS: BP 133/83
== END 2021-04-14 19:23 | disposition home or self-care (01) ==
LOC: MED 17:21
DX: R00.0 Tachycardia, unspecified (principal)
CPT/HCPCS: 81001; 93005; 99284

== ENCOUNTER 2021-04-29 16:30 | Emergency (ER) | payer OTHER ==
[~2021-04-29] VITALS: Ht 172.7 cm; Wt 70.3 kg
[2021-04-29 16:54] VITALS: BP 120/90
--- NOTE | 2021-04-29 16:58 | NUR ---
PATIENT LEFT WITHOUT BEING SEEN BY DR. SHARMA. NO FURTHER CARE PROVIDED FOR PATIENT.
--- NOTE | 2021-04-29 16:59 | NUR ---
PT STATED I GONNA LEAVE BECAUSE MY V/S NORMAL.
== END 2021-04-29 17:00 | disposition left against medical advice (07) ==
LOC: MED 16:30
DX: R00.0 Tachycardia, unspecified (principal); Z53.21 Procedure and treatment not carried out due to patient leaving prior to being seen by health care provider

== ENCOUNTER 2021-05-17 14:04 | Emergency (ER) | payer OTHER ==
[~2021-05-17] VITALS: Ht 172.7 cm; Wt 68.5 kg
[2021-05-17 14:20] VITALS: BP 136/88
--- NOTE | 2021-05-17 14:25 | NUR ---
PT TAKEN TO BED 3.
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
[2021-05-17 14:57] LABS: BASOPHILS % (AUTO) 0.2 % (0.0-2.0); EOSINOPHILS # (AUTO) 0.1 K/uL (0-0.4); EOSINOPHILS % (AUTO) 0.9 % (0.0-4.0); HEMATOCRIT 37.9 % (36-48); HEMOGLOBIN 12.7 g/dL (12.0-16.0); LYMPHOCYTES # (AUTO) 1.9 K/uL (2.5-16.5); LYMPHOCYTES % (AUTO) 23.6 % (20.5-51.1); MEAN CORPUSCULAR HEMOGLOBIN 33 pg (27-31); MEAN CORPUSCULAR HGB CONC 34 g/dL (33-37); MEAN CORPUSCULAR VOLUME 98.3 fL (80-94); MONOCYTES # (AUTO) 0.7 K/uL (0.8-1.0); MONOCYTES % (AUTO) 8.2 % (1.7-9.3); NEUTROPHILS # (AUTO) 5.5 K/uL (1.8-7.7); NEUTROPHILS % (AUTO) 67.1 % (42.2-75.2); PLATELET COUNT (AUTO) 285 K/uL (140-450); RED BLOOD CELL COUNT(AUTO) 3.85 MIL/uL (4.20-5.40); RED CELL DISTRIBUTION WIDTH 12.9 % (11.6-13.7); WHITE BLOOD COUNT (AUTO) 8.2 K/uL (4.8-10.8)
[2021-05-17 15:10] LABS: ANION GAP 14.1 (8-16); CARBON DIOXIDE 25.5 mmol/L (21-32); CREATININE 0.8 mg/dL (0.6-1.3); POTASSIUM 3.6 mmol/L (3.5-5.1); TOTAL BILIRUBIN 0.2 mg/dL (0.0-1.0)
[2021-05-17 15:36] VITALS: BP 136/88
--- NOTE | 2021-05-17 15:36 | NUR ---
Patient discharged with v/s stable. Written and verbal after care instructions given and explained. Patient verbalized understanding. Ambulatory with steady gait. ID Band Removed. All questions addressed prior to discharge. Advised to follow up with PMD.
== END 2021-05-17 15:36 | disposition home or self-care (01) ==
LOC: MED 14:04
DX: R10.9 Unspecified abdominal pain (principal); M54.5 Low back pain
CPT/HCPCS: 36415; 80053; 81002; 81025; 85025; 99283

== ENCOUNTER 2021-05-18 19:26 | Emergency (ER) | payer OTHER ==
[~2021-05-18] VITALS: Ht 172.7 cm; Wt 68.0 kg
[2021-05-18 19:31] VITALS: BP 125/79
[2021-05-18 19:45] VITALS: BP 125/79
--- NOTE | 2021-05-18 19:50 | NUR ---
41/f PATIENT BIB SELF FOR C/O "FEELLING PALPATIONS." PER PATIENT STATES PALPATIONS BEGAN AFTER 3RD COFFEE TODAY X 1 HOUR AGO. PT DENIES CHEST PAIN. PT ALSO COMPLAINING OF STOOL DISCOLORATION. DENIES ABDOMINAL PAIN. MEDHX: DENIES ALLERGIES: NKA
--- NOTE | 2021-05-18 20:20 | NUR ---
EKG PERFORMED AT BEDSIDE. EKG READS SINUS RHYTHM @ 78
--- NOTE | 2021-05-18 20:21 | NUR ---
PATIENT LEFT WITHOUT DISCHARGE PAPERWORK.
--- NOTE | 2021-05-18 20:21 | NUR ---
PT LEFT ROOM AFTER EKG PERFORMED, STATED "I JUST WANT TO GO HOME AND GO TO SLEEP"
== END 2021-05-18 20:21 | disposition home or self-care (01) ==
LOC: MED 19:26
DX: R00.2 Palpitations (principal); F41.9 Anxiety disorder, unspecified
CPT/HCPCS: 93005; 99283

== ENCOUNTER 2021-05-18 22:31 | Emergency (ER) | payer OTHER ==
[~2021-05-18] VITALS: Ht 172.7 cm; Wt 68.0 kg
[2021-05-18 23:06] VITALS: BP 132/86
--- NOTE | 2021-05-19 00:50 | NUR ---
CALLED IN LOBBY AND OUTSIDE. NO ANSWER
--- NOTE | 2021-05-19 00:55 | NUR ---
CALLED IN LOBBY AND OUTSIDE. NO ANSWER
--- NOTE | 2021-05-19 01:00 | NUR ---
CALLED IN LOBBY AND OUTSIDE. NO ANSWER
--- NOTE | 2021-05-19 01:00 | NUR ---
PATIENT LEFT WITHOUT BEING SEEN BY DR. SMYTH. NO FURTHER CARE PROVIDED FOR PATIENT.
== END 2021-05-19 00:50 | disposition left against medical advice (07) ==
LOC: MED 22:31
DX: Z00.00 Encounter for general adult medical examination without abnormal findings (principal); Z53.21 Procedure and treatment not carried out due to patient leaving prior to being seen by health care provider

== ENCOUNTER 2021-06-07 12:23 | Emergency (ER) | payer OTHER ==
[~2021-06-07] VITALS: Ht 172.7 cm; Wt 63.5 kg
[2021-06-07 12:36] VITALS: BP 114/67
--- NOTE | 2021-06-07 12:40 | NUR ---
PATIENT LEFT WITHOUT BEING SEEN BY . NO FURTHER CARE PROVIDED FOR PATIENT. PT STATED I JUST WANT TO CHECK MY HEART RATE & NOW IT'S NOEMAL. I WANT TO GO HOME.
== END 2021-06-07 12:40 | disposition left against medical advice (07) ==
LOC: MED 12:23
DX: R00.0 Tachycardia, unspecified (principal); Z53.21 Procedure and treatment not carried out due to patient leaving prior to being seen by health care provider

== ENCOUNTER 2021-07-11 14:22 | Emergency (ER) | payer OTHER ==
--- NOTE | 2021-07-11 15:00 | NUR ---
PT WANTED TO CHECK HR: 86. PATIENT LEFT WITHOUT BEING TRIAGED. NO FURTHER CARE PROVIDED FOR PATIENT.
== END 2021-07-11 15:00 | disposition left against medical advice (07) ==
LOC: MED 14:22
DX: Z53.21 Procedure and treatment not carried out due to patient leaving prior to being seen by health care provider (principal)

== ENCOUNTER 2021-07-23 01:08 | Emergency (ER) | payer OTHER ==
[~2021-07-23] VITALS: Ht 172.7 cm; Wt 67.6 kg
[2021-07-23 01:17] VITALS: BP 115/48
== END 2021-07-23 01:24 | disposition left against medical advice (07) ==
LOC: MED 01:08
DX: R42 Dizziness and giddiness (principal); Z53.21 Procedure and treatment not carried out due to patient leaving prior to being seen by health care provider

== ENCOUNTER 2021-08-18 23:18 | Emergency (ER) | payer OTHER ==
[~2021-08-18] VITALS: Ht 172.7 cm; Wt 69.4 kg
[2021-08-18 23:30] VITALS: BP 121/87
--- NOTE | 2021-08-18 23:35 | NUR ---
PT SENT TO LOBBY
--- NOTE | 2021-08-19 01:45 | NUR ---
PATIENT CALLED TO BE IN BED , NO RESPONSE
--- NOTE | 2021-08-19 01:50 | NUR ---
CALLED FOR THE SECOND TIME NO RESPONSE
--- NOTE | 2021-08-19 01:55 | NUR ---
CALLED FOR THIRD TIME NO RESPONSE
== END 2021-08-19 01:45 | disposition left against medical advice (07) ==
LOC: MED 23:18
DX: F41.9 Anxiety disorder, unspecified (principal); Z53.21 Procedure and treatment not carried out due to patient leaving prior to being seen by health care provider

== ENCOUNTER 2021-08-29 15:46 | Emergency (ER) | payer OTHER ==
[~2021-08-29] VITALS: Ht 172.7 cm; Wt 65.8 kg
[2021-08-29 15:51] VITALS: BP 132/82
[2021-08-29] MEDS ORDERED: NACL 0.9% 1,000 ML IV ONE (15:55)
--- NOTE | 2021-08-29 15:57 | NUR ---
PT AMBULATED TO BED
--- NOTE | 2021-08-29 16:00 | NUR ---
DR. VALENTINE AT PT BEDSIDE FOR FURTHER EVALUATION.
--- NOTE | 2021-08-29 16:27 | NUR ---
41 Y/O FEMALE C/O PALPITATIONS S/P DRINKING COFFEE X1 HOUR AGO. PT STATES SHE TOOK 25MG METOPROLOL 1 HOUR AGO. DENIES CHEST PAIN, DENIES SOB. DENIES PMH NKA
--- NOTE | 2021-08-29 16:45 | NUR ---
Patient discharged with v/s stable. Written and verbal after care instructions ABOUT PALPITATIONS given and explained. Patient verbalized understanding. Ambulatory with steady gait. All questions addressed prior to discharge. Advised to follow up with PMD.
== END 2021-08-29 16:45 | disposition home or self-care (01) ==
LOC: MED 15:46
DX: R00.0 Tachycardia, unspecified (principal); R00.2 Palpitations; F17.210 Nicotine dependence, cigarettes, uncomplicated; Z71.6 Tobacco abuse counseling
CPT/HCPCS: 93005; 99283

== ENCOUNTER 2021-09-05 17:43 | Emergency (ER) | payer OTHER ==
[~2021-09-05] VITALS: Ht 172.7 cm; Wt 67.6 kg
[2021-09-05 18:05] VITALS: BP 125/70
--- NOTE | 2021-09-05 18:23 | NUR ---
DR CABRERA EVALUATING PT IN TRIAGE ROOM
--- NOTE | 2021-09-05 19:01 | NUR ---
NO NURSING INTERVENTIONS GIVEN. NO NEED FOR COMPLETE ASSESSMENT
[2021-09-05 19:02] VITALS: BP 141/73
== END 2021-09-05 19:01 | disposition home or self-care (01) ==
LOC: MED 17:43
DX: R00.0 Tachycardia, unspecified (principal); R00.2 Palpitations; Z79.899 Other long term (current) drug therapy
CPT/HCPCS: 99281

== ENCOUNTER 2021-10-20 20:16 | Emergency (ER) | payer OTHER ==
[~2021-10-20] VITALS: Ht 172.7 cm; Wt 63.5 kg
[2021-10-20 20:20] VITALS: BP 139/80
[2021-10-20 21:25] VITALS: BP 127/78
== END 2021-10-20 21:27 | disposition home or self-care (01) ==
LOC: MED 20:16
DX: F41.9 Anxiety disorder, unspecified (principal)
CPT/HCPCS: 93005; 99283

== ENCOUNTER 2021-11-05 16:26 | Emergency (ER) | payer OTHER ==
[~2021-11-05] VITALS: Ht 172.7 cm; Wt 63.5 kg
[2021-11-05 16:59] VITALS: BP 127/83
[2021-11-05 19:15] VITALS: BP 127/83
--- NOTE | 2021-11-05 19:15 | NUR ---
Patient discharged with v/s stable. Written and verbal after care instructions given and explained. Patient alert, oriented and verbalized understanding of instructions. Ambulatory with steady gait. All questions addressed prior to discharge. ID band removed. Patient advised to follow up with PMD. Rx of INHALER given. Patient educated on indication of medication including possible reaction and side effects. Opportunity to ask questions provided and answered.
[2021-11-05] MEDS ORDERED: ALBU0.0912 IH ×2 (19:45→22:46)
== END 2021-11-05 19:15 | disposition home or self-care (01) ==
LOC: MED 16:26
DX: F41.9 Anxiety disorder, unspecified (principal); J45.909 Unspecified asthma, uncomplicated
CPT/HCPCS: 99283

== ENCOUNTER 2021-11-07 23:33 | Emergency (ER) | payer OTHER ==
[~2021-11-07] VITALS: Ht 172.7 cm; Wt 68.0 kg
[~2021-11-07 23:33] MED LIST changes: +ALBU0.0912 IH
[2021-11-08 00:43] VITALS: BP 118/86
[2021-11-08 03:06] LABS: BASOPHILS % (AUTO) 0.3 % (0.0-2.0); EOSINOPHILS % (AUTO) 0.4 % (0.0-4.0); HEMATOCRIT 42.5 % (36-48); HEMOGLOBIN 14.3 g/dL (12.0-16.0); LYMPHOCYTES # (AUTO) 2.2 K/uL (2.5-16.5); LYMPHOCYTES % (AUTO) 19.9 % (20.5-51.1); MEAN CORPUSCULAR HEMOGLOBIN 33 pg (27-31); MEAN CORPUSCULAR HGB CONC 34 g/dL (33-37); MONOCYTES # (AUTO) 0.6 K/uL (0.8-1.0); MONOCYTES % (AUTO) 5.8 % (1.7-9.3); NEUTROPHILS # (AUTO) 8.3 K/uL (1.8-7.7); NEUTROPHILS % (AUTO) 73.6 % (42.2-75.2); PLATELET COUNT (AUTO) 268 K/uL (140-450); RED BLOOD CELL COUNT(AUTO) 4.34 MIL/uL (4.20-5.40); RED CELL DISTRIBUTION WIDTH 12.9 % (11.6-13.7); WHITE BLOOD COUNT (AUTO) 11.2 K/uL (4.8-10.8)
[2021-11-08 03:21] LABS: ANION GAP 10.8 (8-16); CARBON DIOXIDE 27.1 mmol/L (21-32); CREATININE 0.7 mg/dL (0.6-1.3); POTASSIUM 3.9 mmol/L (3.5-5.1)
[2021-11-08] MEDS ORDERED: HYDR-636 PO (03:52)
[2021-11-08 04:08] VITALS: BP 115/84
--- NOTE | 2021-11-08 04:08 | NUR ---
Patient discharged with v/s stable. Written and verbal after care instructions given and explained. Patient alert, oriented and verbalized understanding of instructions. Ambulatory with steady gait. All questions addressed prior to discharge. ID band removed. Patient advised to follow up with PMD. Rx of HYDROXYZINE given. Patient educated on indication of medication including possible reaction and side effects. Opportunity to ask questions provided and answered.
== END 2021-11-08 04:08 | disposition home or self-care (01) ==
LOC: MED 23:33
DX: F15.10 Other stimulant abuse, uncomplicated (principal); F41.9 Anxiety disorder, unspecified; F17.210 Nicotine dependence, cigarettes, uncomplicated
CPT/HCPCS: 36415; 80048; 84484; 85025; 93005; 99284

== ENCOUNTER 2021-12-03 14:58 | Emergency (ER) | payer OTHER ==
[~2021-12-03] VITALS: Ht 172.7 cm; Wt 68.0 kg
[~2021-12-03 14:58] MED LIST changes: +HYDR-636 PO
[2021-12-03 15:17] VITALS: BP 119/75
--- NOTE | 2021-12-03 15:30 | NUR ---
Patient ambulated to bed 02 with steady/even gait.
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
[2021-12-03] MEDS ORDERED: RECT1DEV RC (15:54)
--- NOTE | 2021-12-03 16:00 | NUR ---
Patient discharged with v/s stable. Written and verbal after care instructions given and explained. Patient alert, oriented and verbalized understanding of instructions. Ambulatory with steady gait. All questions addressed prior to discharge. ID band removed. Patient advised to follow up with PMD. Rx of Lidocaine (Recticare) given. Patient educated on indication of medication including possible reaction and side effects. Opportunity to ask questions provided and answered.
== END 2021-12-03 16:00 | disposition home or self-care (01) ==
LOC: MED 14:58
DX: R00.2 Palpitations (principal); F41.1 Generalized anxiety disorder; L29.0 Pruritus ani
CPT/HCPCS: 93005; 99283

== ENCOUNTER 2021-12-14 08:40 | Emergency (ER) | payer OTHER ==
[~2021-12-14] VITALS: Ht 172.7 cm; Wt 67.1 kg
[~2021-12-14 08:40] MED LIST changes: +RECT1DEV RC
[2021-12-14 08:50] VITALS: BP 121/79
[2021-12-14 08:55] VITALS: BP 121/79
--- NOTE | 2021-12-14 08:55 | NUR ---
pt states she just wanted her bp and pulse checked, does not want to seek medical attention at this time. lwbs
--- NOTE | 2021-12-14 08:56 | NUR ---
PATIENT LEFT WITHOUT BEING SEEN BY DR. AGUILAR. NO FURTHER CARE PROVIDED FOR PATIENT.
== END 2021-12-14 08:55 | disposition left against medical advice (07) ==
LOC: MED 08:40
DX: R03.0 Elevated blood-pressure reading, without diagnosis of hypertension (principal); Z53.21 Procedure and treatment not carried out due to patient leaving prior to being seen by health care provider

== ENCOUNTER 2021-12-18 12:09 | Emergency (ER) | payer OTHER ==
[~2021-12-18] VITALS: Ht 172.7 cm; Wt 68.0 kg
[2021-12-18 12:16] VITALS: BP 123/81
--- NOTE | 2021-12-18 12:17 | NUR ---
DR. WASHBURN ASSESSING PATIENT IN TRIAGE
[2021-12-18 12:44] VITALS: BP 123/81
--- NOTE | 2021-12-18 12:44 | NUR ---
Giles left without d/c paperwork. Patient discharged with v/s stable. Ambulatory with steady gait. All questions addressed prior to discharge. ID band removed. Patient advised to follow up with PMD. Opportunity to ask questions provided and answered.
== END 2021-12-18 12:44 | disposition home or self-care (01) ==
LOC: MED 12:09
DX: F41.0 Panic disorder [episodic paroxysmal anxiety] (principal); F17.210 Nicotine dependence, cigarettes, uncomplicated; Z79.899 Other long term (current) drug therapy; Z71.6 Tobacco abuse counseling
CPT/HCPCS: 99281

== ENCOUNTER 2021-12-24 15:29 | Emergency (ER) | payer OTHER ==
[~2021-12-24] VITALS: Ht 172.7 cm; Wt 68.0 kg
[2021-12-24 15:48] VITALS: BP 123/78
[2021-12-24] MEDS ORDERED: [UNRECOGNIZED DRUG - CODE] MC (15:58)
[2021-12-24] MEDS ORDERED: METO25TE71 PO (15:58)
--- NOTE | 2021-12-24 16:11 | NUR ---
Patient discharged with v/s stable. Written and verbal after care instructions given FOR MEDICINE REFILL AND PALPITATION and explained. Patient alert, oriented and verbalized understanding of instructions. Ambulatory with steady gait. All questions addressed prior to discharge. ID band removed. Patient advised to follow up with PMD. Rx of METROPOLO AND BP CUFF given. Patient educated on indication of medication including possible reaction and side effects. Opportunity to ask questions provided and answered.
[2021-12-24 16:15] VITALS: BP 116/71
[2021-12-24] MEDS ORDERED: [UNRECOGNIZED DRUG - CODE] MC (17:14)
== END 2021-12-24 16:11 | disposition home or self-care (01) ==
LOC: MED 15:29
DX: F41.9 Anxiety disorder, unspecified (principal); Z76.0 Encounter for issue of repeat prescription; Z79.899 Other long term (current) drug therapy
CPT/HCPCS: 99281

== ENCOUNTER 2021-12-28 21:58 | Emergency (ER) | payer OTHER ==
[~2021-12-28 21:58] MED LIST changes: +METO25TE71 PO; +[UNRECOGNIZED DRUG - CODE] MC; +[UNRECOGNIZED DRUG - CODE] MC
== END 2021-12-28 22:00 | disposition left against medical advice (07) ==
LOC: MED 21:58
DX: Z53.21 Procedure and treatment not carried out due to patient leaving prior to being seen by health care provider (principal)

== ENCOUNTER 2022-01-02 16:18 | Emergency (ER) | payer OTHER ==
[~2022-01-02] VITALS: Ht 172.7 cm; Wt 66.2 kg
[2022-01-02 16:21] VITALS: BP 132/78
--- NOTE | 2022-01-02 16:50 | NUR ---
41/F BIB SELF, AA&OX4, AMBULATORY W/ STEADY GAIT; PATIENT PRESENTS TO ED WITH C/O "ANXIETY ATTACK" X1 HOUR AGO WHILE DRIVING, +NUMBESS OF HANDS AND FEET, +DIZZINESS. PATIENT REPORTS SMOKING AND TAKING METOPROLOL PRIOR TO ONSET OF SYMPTOMS. -N/V/D, SOB, CP. PATIENT DRINKS CAFFEINATED DRINKS AND REPORTS "TRYING TO CUT BACK." PMH: DENIES MEDS: METOPROLOL NKA
[2022-01-02 17:00] VITALS: BP 132/78
--- NOTE | 2022-01-02 17:00 | NUR ---
Patient discharged with v/s stable. Written and verbal after care instructions ABOUT MEDICAL SCREENING EXAM, GENERALIZED ANXIETY DISORDER, PALPITATIONS given and explained. Patient verbalized understanding. Ambulatory with steady gait. All questions addressed prior to discharge. Advised to follow up with PMD.
--- NOTE | 2022-01-02 17:06 | NUR ---
Chart checked and completed. The patient's care was reviewed and supervised by Alicja Driver RN.
== END 2022-01-02 17:00 | disposition home or self-care (01) ==
LOC: MED 16:18
DX: R00.2 Palpitations (principal); F41.9 Anxiety disorder, unspecified; R20.0 Anesthesia of skin; Z79.899 Other long term (current) drug therapy
CPT/HCPCS: 93005; 99283

== ENCOUNTER 2022-01-04 05:13 | Emergency (ER) | payer OTHER ==
[~2022-01-04] VITALS: Ht 172.7 cm; Wt 68.0 kg
[2022-01-04 05:21] VITALS: BP 123/85
--- NOTE | 2022-01-04 05:24 | NUR ---
Dr. Faust examining patient.
--- NOTE | 2022-01-04 05:32 | NUR ---
pt to [facility]b
--- NOTE | 2022-01-04 05:49 | NUR ---
pt left w/o d/c paperwork
[2022-01-04] MEDS ORDERED: BENZ1LOZ98 PO (08:00)
== END 2022-01-04 05:49 | disposition home or self-care (01) ==
LOC: MED 05:13
DX: F41.0 Panic disorder [episodic paroxysmal anxiety] (principal); Z79.899 Other long term (current) drug therapy
CPT/HCPCS: 81002; 93005; 99283

== ENCOUNTER 2022-01-04 07:33 | Emergency (ER) | payer OTHER ==
[~2022-01-04] VITALS: Ht 172.7 cm; Wt 62.1 kg
[2022-01-04 07:34] VITALS: BP 118/71
--- NOTE | 2022-01-04 07:38 | NUR ---
PT AMBULATED TO [facility] FOR FURTHER EVALUATION.
--- NOTE | 2022-01-04 07:39 | NUR ---
41 Y/O FEMALE C/O "THROAT DISCOMFORT" X1DAY. PT STATES SHE WAS RECENTLY D/C BUT THE MD DID NOT CHECK HER THROAT". DENIES PAIN. DENIES SOB. DENIES FEVER/CHILLS. DENIES N/V. PMH: HTN, ANXIETY, TACHYCARDIA NKA
[2022-01-04] MEDS ORDERED: BENZ1LOZ98 PO (08:00)
[2022-01-04 08:16] VITALS: BP 118/71
--- NOTE | 2022-01-04 08:17 | NUR ---
PT LEFT WITHOUT D/C PAPERWORK. MADE AWARE.
--- NOTE | 2022-01-04 08:20 | NUR ---
PT CAME BACK FOR DISCHARGE INFORMATION
== END 2022-01-04 08:16 | disposition home or self-care (01) ==
LOC: MED 07:33
DX: J02.9 Acute pharyngitis, unspecified (principal); E86.0 Dehydration; F41.9 Anxiety disorder, unspecified; F32.9 Major depressive disorder, single episode, unspecified; Z79.899 Other long term (current) drug therapy
CPT/HCPCS: 99283

== ENCOUNTER 2022-01-17 20:21 | Emergency (ER) | payer OTHER ==
[~2022-01-17] VITALS: Ht 172.7 cm; Wt 68.0 kg
[~2022-01-17 20:21] MED LIST changes: +BENZ1LOZ98 PO
[2022-01-17 20:35] VITALS: BP 111/73
--- NOTE | 2022-01-17 22:08 | NUR ---
Dr. Cullen examining patient.
[2022-01-17] MEDS ORDERED: METO-744 PO (22:19)
--- NOTE | 2022-01-17 22:25 | NUR ---
PATIENT CLEARED FOR DISCHARGE AT THIS TIME. ADVISED TO FOLLOW JUP WITH PCP AND RETURN IF CODNITON WORSENS. NO OTHER COMPLAINT OR CONCERNS AFTER DISCHARGE TEACHING.
[2022-01-17 22:27] VITALS: BP 111/73
== END 2022-01-17 22:25 | disposition home or self-care (01) ==
LOC: MED 20:21
DX: F41.9 Anxiety disorder, unspecified (principal); F32.9 Major depressive disorder, single episode, unspecified; Z76.0 Encounter for issue of repeat prescription; Z79.899 Other long term (current) drug therapy
CPT/HCPCS: 99281

== ENCOUNTER 2022-01-17 23:37 | Emergency (ER) | payer OTHER ==
[~2022-01-17] VITALS: Ht 172.7 cm; Wt 68.0 kg
[~2022-01-17 23:37] MED LIST changes: +METO-744 PO
--- NOTE | 2022-01-17 23:42 | NUR ---
Dr. Cullen examining patient.
[2022-01-17 23:44] VITALS: BP 138/72
--- NOTE | 2022-01-17 23:45 | NUR ---
DISCHARGED FROM ER APPROX 1 HOUR AGO. RETURNS NOW WITH C/O DIZZINESS AND DRINKING TOO MUCH COFFEE. PT HAS MULTIPLE VAGUE COMPLAINTS. AMBULATES WITH STEADY GAIT. EXHIBITING PARANOID BEHAVIOR, STATING I DON'T FEEL SAFE" REASSURANCE GIVEN
--- NOTE | 2022-01-17 23:50 | NUR ---
TO LOBBY FOLLOWING TRIAGE. UA OBTAINED
[2022-01-18 00:02] VITALS: BP 138/72
== END 2022-01-18 00:02 | disposition home or self-care (01) ==
LOC: MED 23:37
DX: T50.995A Adverse effect of other drugs, medicaments and biological substances, initial encounter (principal); R42 Dizziness and giddiness; F32.9 Major depressive disorder, single episode, unspecified; Z79.899 Other long term (current) drug therapy; Y92.89 Other specified places as the place of occurrence of the external cause
CPT/HCPCS: 81002; 81025; 99281; 99282

== ENCOUNTER 2022-01-24 17:06 | Emergency (ER) | payer OTHER ==
[~2022-01-24] VITALS: Ht 172.7 cm; Wt 68.0 kg
[2022-01-24 17:22] VITALS: BP 136/65
--- NOTE | 2022-01-24 17:31 | NUR ---
PT AMB TO BED 11.
--- NOTE | 2022-01-24 17:36 | NUR ---
DR BARTON AT BEDSIDE EXAMINING PT
--- NOTE | 2022-01-24 18:00 | NUR ---
42 Y/O F C/O VAGINAL BLEEDING , NAUSEA X 4 DAYS. STATED HER PCP COME GET AN EKG DONE. PT DENIES ANY CURRENT PAIN
[2022-01-24 18:02] VITALS: BP 136/65
--- NOTE | 2022-01-24 18:02 | NUR ---
Patient left without d/c paperwork, discharged with v/s stable. Patient alert, oriented. Ambulatory with steady gait. All questions addressed prior to discharge. ID band removed. Patient advised to follow up with PMD. Opportunity to ask questions provided and answered.
== END 2022-01-24 18:02 | disposition home or self-care (01) ==
LOC: MED 17:06
DX: R00.2 Palpitations (principal); F15.90 Other stimulant use, unspecified, uncomplicated
CPT/HCPCS: 81025; 93005; 99283

== ENCOUNTER 2022-01-31 01:24 | Emergency (ER) | payer OTHER ==
[~2022-01-31] VITALS: Ht 172.7 cm; Wt 68.0 kg
[2022-01-31 01:44] VITALS: BP 141/85
[2022-01-31 04:31] VITALS: BP 138/72
== END 2022-01-31 04:31 | disposition home or self-care (01) ==
LOC: MED 01:24
DX: T18.108A Unspecified foreign body in esophagus causing other injury, initial encounter (principal); Z79.899 Other long term (current) drug therapy; X58.XXXA Exposure to other specified factors, initial encounter; Y93.89 Activity, other specified; Y92.89 Other specified places as the place of occurrence of the external cause; Y99.8 Other external cause status
CPT/HCPCS: 99281

== ENCOUNTER 2022-02-15 19:41 | Emergency (ER) | payer OTHER ==
[~2022-02-15] VITALS: Ht 172.7 cm; Wt 67.1 kg
[~2022-02-15 19:41] MED LIST changes: +BENZ-300 PO; -BENZ1LOZ98 PO
[2022-02-15 20:10] VITALS: BP 121/77
--- NOTE | 2022-02-15 20:15 | NUR ---
patient to lobby
--- NOTE | 2022-02-15 21:27 | NUR ---
ERMD SIN EXAMINING PT
[2022-02-15] MEDS ORDERED: METO-744 PO (21:33)
[2022-02-15 21:46] VITALS: BP 121/77
--- NOTE | 2022-02-15 21:46 | NUR ---
SEEN BY ADE NO NURSING INTERVENTIONS PROVIDED FOR PATIENT.
--- NOTE | 2022-02-15 21:46 | NUR ---
Patient discharged with v/s stable. Written and verbal after care instructions given and explained. Patient alert, oriented and verbalized understanding of instructions. Ambulatory with steady gait. All questions addressed prior to discharge. ID band removed. Patient advised to follow up with PMD. Rx of METOPROLOL SUCCINATE ER given. Patient educated on indication of medication including possible reaction and side effects. Opportunity to ask questions provided and answered.
== END 2022-02-15 21:46 | disposition home or self-care (01) ==
LOC: MED 19:41
DX: F41.1 Generalized anxiety disorder (principal); Z76.0 Encounter for issue of repeat prescription; Z79.899 Other long term (current) drug therapy
CPT/HCPCS: 99281; 99283

== ENCOUNTER 2022-03-03 18:46 | Emergency (ER) | payer OTHER ==
[~2022-03-03] VITALS: Ht 172.7 cm; Wt 68.0 kg
[2022-03-03 18:50] VITALS: BP 112/75
[2022-03-03] MEDS ORDERED: ACET-10509 PO (19:45)
[2022-03-03] MEDS ORDERED: METO25TA14 PO (19:45)
[2022-03-03 20:24] VITALS: BP 112/75
== END 2022-03-03 20:21 | disposition home or self-care (01) ==
LOC: MED 18:46
DX: R00.0 Tachycardia, unspecified (principal); G89.4 Chronic pain syndrome; Z76.0 Encounter for issue of repeat prescription; Z79.899 Other long term (current) drug therapy
CPT/HCPCS: 99282

== ENCOUNTER 2022-03-21 15:18 | Emergency (ER) | payer OTHER ==
[~2022-03-21] VITALS: Ht 172.7 cm; Wt 68.0 kg
[~2022-03-21 15:18] MED LIST changes: +ACET-10509 PO; +METO25TA14 PO
[2022-03-21 15:23] VITALS: BP 127/74
[2022-03-21] MEDS ORDERED: PROM118S5 PO (16:44)
[2022-03-21] MEDS ORDERED: BENZ150C2 PO (16:45)
[2022-03-21] MEDS ORDERED: OXYM15SP72 NS (16:45)
--- NOTE | 2022-03-21 17:12 | NUR ---
Patient discharged with v/s stable. Written and verbal after care instructions given and explained. Patient alert, oriented and verbalized understanding of instructions. Ambulatory with steady gait. All questions addressed prior to discharge. ID band removed. Patient advised to follow up with PMD. Rx of BENZONATATE, AFRIN, PROMETHAZINE DM-SYRUP, NO NURSING INTERVENTIONS PERFORMED given. Patient educated on indication of medication including possible reaction and side effects. Opportunity to ask questions provided and answered.
== END 2022-03-21 17:12 | disposition home or self-care (01) ==
LOC: MED 15:18
DX: J06.9 Acute upper respiratory infection, unspecified (principal); Z79.899 Other long term (current) drug therapy
CPT/HCPCS: 99283

== ENCOUNTER 2022-04-26 15:20 | Emergency (ER) | payer OTHER ==
[~2022-04-26] VITALS: Ht 167.6 cm; Wt 70.3 kg
[~2022-04-26 15:20] MED LIST changes: +BENZ150C2 PO; +OXYM15SP72 NS; +PROM118S5 PO
[2022-04-26 15:36] VITALS: BP 113/65
--- NOTE | 2022-04-26 17:26 | NUR ---
PT C/O BUG BITE TO RIGHT FOREARM. PMH: TACHYCARDIA, ANXIETY
--- NOTE | 2022-04-26 18:00 | NUR ---
NO NURSING INTERVENTION NEEDED, SEEN & TREATED BY DR MCKNIGHT.
[2022-04-26] MEDS ORDERED: METO-744 PO (18:02)
[2022-04-26] MEDS ORDERED: CEPH-588 PO (18:02)
[2022-04-26 18:16] VITALS: BP 111/78
--- NOTE | 2022-04-26 18:16 | NUR ---
Patient discharged with v/s stable. Written and verbal after care instructions given and explained. Patient alert, oriented and verbalized understanding of instructions. Ambulatory with steady gait. All questions addressed prior to discharge. ID band removed. Patient advised to follow up with PMD. Rx of KEFLEX, METOPROLOL given. Patient educated on indication of medication including possible reaction and side effects. Opportunity to ask questions provided and answered.
== END 2022-04-26 18:16 | disposition home or self-care (01) ==
LOC: MED 15:20
DX: L03.113 Cellulitis of right upper limb (principal); I10 Essential (primary) hypertension; Z79.899 Other long term (current) drug therapy
CPT/HCPCS: 99283

== ENCOUNTER 2022-05-01 16:19 | Emergency (ER) | payer OTHER ==
[~2022-05-01] VITALS: Ht 172.7 cm; Wt 77.1 kg
[~2022-05-01 16:19] MED LIST changes: +CEPH-588 PO
[2022-05-01 16:26] VITALS: BP 114/78
== END 2022-05-01 16:40 | disposition home or self-care (01) ==
LOC: MED 16:19
DX: F41.9 Anxiety disorder, unspecified (principal); R00.2 Palpitations; I10 Essential (primary) hypertension
CPT/HCPCS: 99281

== ENCOUNTER 2022-05-04 22:15 | Emergency (ER) | payer OTHER ==
[~2022-05-04] VITALS: Ht 172.7 cm; Wt 68.0 kg
[2022-05-04 22:18] VITALS: BP 129/79
--- NOTE | 2022-05-04 22:23 | NUR ---
TO LOBBY FOLLOWING TRIAGE
[2022-05-04 23:24] VITALS: BP 129/79
== END 2022-05-04 23:24 | disposition home or self-care (01) ==
LOC: MED 22:15
DX: R19.7 Diarrhea, unspecified (principal); I10 Essential (primary) hypertension; Z79.899 Other long term (current) drug therapy; Z79.2 Long term (current) use of antibiotics
CPT/HCPCS: 99281

== ENCOUNTER 2022-05-21 12:37 | Emergency (ER) | payer OTHER ==
[~2022-05-21] VITALS: Ht 172.7 cm; Wt 66.7 kg
[2022-05-21 12:40] VITALS: BP 134/84
--- NOTE | 2022-05-21 13:05 | NUR ---
42YR OLD FEMALE BIB SELF C/O RIGHT EAR DISCOMFORT. CHRONIC ISSUE FOR PATIENT HAS BEEN GETTING WORSE. 05/10 PAIN LEVEL. DENIES ANY INJURY TO EAR. PT A&OX4. STATES HAVING A BIT OF DIZZINESS. DENIES N/V. PT SITTING IN CHAIR . NKDA
--- NOTE | 2022-05-21 13:16 | NUR ---
ER AT BEDSIDE
--- NOTE | 2022-05-21 13:20 | NUR ---
PENDING DC PAPERWORK Addendum: 05/21/22 at 1326 by [email or web address] PT REQUESTING TO WAIT IN LOBBY
[2022-05-21 13:27] VITALS: BP 134/84
--- NOTE | 2022-05-21 13:27 | NUR ---
Patient discharged with v/s stable. Written and verbal after care instructions given and explained. Patient alert, oriented and verbalized understanding of instructions. Ambulatory with steady gait. All questions addressed prior to discharge. ID band removed. Patient advised to follow up with PMD. Rx of CARBAMIDE PEROXIDE given. Patient educated on indication of medication including possible reaction and side effects. Opportunity to ask questions provided and answered.
--- NOTE | 2022-05-21 13:28 | NUR ---
The patient's care was reviewed and supervised by Jyotsna Peterson RN.
[2022-05-21] MEDS ORDERED: CARB15DR61 OT (13:29)
[2022-05-22] MEDS ORDERED: FLONAS NS (19:41)
[2022-05-22] MEDS ORDERED: METO25TA14 PO (19:41)
== END 2022-05-21 13:27 | disposition home or self-care (01) ==
LOC: MED 12:37
DX: H92.01 Otalgia, right ear (principal); Z79.899 Other long term (current) drug therapy
CPT/HCPCS: 99282

== ENCOUNTER 2022-05-22 18:46 | Emergency (ER) | payer OTHER ==
[~2022-05-22] VITALS: Ht 172.7 cm; Wt 68.0 kg
[~2022-05-22 18:46] MED LIST changes: +CARB15DR61 OT
[2022-05-22 19:22] VITALS: BP 134/68
--- NOTE | 2022-05-22 19:26 | NUR ---
TO LOBBY FOLLOWING TRIAGE
[2022-05-22] MEDS ORDERED: METO25TA14 PO (19:41)
[2022-05-22] MEDS ORDERED: FLONAS NS (19:41)
[2022-05-22 20:05] VITALS: BP 134/68
--- NOTE | 2022-05-22 20:05 | NUR ---
Patient discharged with v/s stable. Written and verbal after care instructions given and explained. Patient alert, oriented and verbalized understanding of instructions. Ambulatory with steady gait. All questions addressed prior to discharge. ID band removed. Patient advised to follow up with PMD. Rx of FLONASE, AND METOPROLOL given. Patient educated on indication of medication including possible reaction and side effects. Opportunity to ask questions provided and answered.
== END 2022-05-22 20:05 | disposition home or self-care (01) ==
LOC: MED 18:46
DX: J30.9 Allergic rhinitis, unspecified (principal); Z76.0 Encounter for issue of repeat prescription
CPT/HCPCS: 99283

== ENCOUNTER 2022-05-24 10:40 | Emergency (ER) | payer OTHER ==
[~2022-05-24 10:40] MED LIST changes: +FLONAS NS
--- NOTE | 2022-05-24 10:59 | NUR ---
CALLED X 1. NO SHOW.
--- NOTE | 2022-05-24 11:03 | NUR ---
CALLED [phone]. PT STATED SHE WENT HOME & WILL COME BACK IN 15 MINS.
--- NOTE | 2022-05-24 11:23 | NUR ---
PATIENT LEFT WITHOUT BEING SEEN BY DR. DR BELTRAN. NO FURTHER CARE PROVIDED FOR PATIENT. LWBS AT 10.58 AM.
--- NOTE | 2022-05-24 11:23 | NUR ---
Lorena agosto in [facility] - 05/24/22 at 1126 by [email or web address] PATIENT LEFT WITHOUT BEING SEEN BY DR. DR BELTRAN. NO FURTHER CARE PROVIDED FOR PATIENT.
== END 2022-05-24 10:59 | disposition left against medical advice (07) ==
LOC: MED 10:40
DX: R21 Rash and other nonspecific skin eruption (principal); Z53.21 Procedure and treatment not carried out due to patient leaving prior to being seen by health care provider

== ENCOUNTER 2022-05-26 19:30 | Emergency (ER) | payer OTHER ==
[~2022-05-26] VITALS: Ht 172.7 cm; Wt 66.7 kg
[2022-05-26 19:47] VITALS: BP 135/73
--- NOTE | 2022-05-26 19:50 | NUR ---
PATIENT LEFT WITHOUT BEING SEEN BY DR. Alexander. NO FURTHER CARE PROVIDED FOR PATIENT.
--- NOTE | 2022-05-26 19:50 | NUR ---
Patient states " my heart is okay, I do not need to see doctor."
== END 2022-05-26 19:50 | disposition left against medical advice (07) ==
LOC: MED 19:30
DX: F41.9 Anxiety disorder, unspecified (principal); Z53.21 Procedure and treatment not carried out due to patient leaving prior to being seen by health care provider

== ENCOUNTER 2022-05-30 14:25 | Emergency (ER) | payer OTHER ==
[~2022-05-30] VITALS: Ht 172.7 cm; Wt 67.6 kg
[2022-05-30 14:41] VITALS: BP 126/78
--- NOTE | 2022-05-30 14:46 | NUR ---
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 DENIES OTHER MEDICAL COMPLAINTS AT THIS TIME, DENIES CP. HEART RATE IN TRIAGE 89.
[2022-05-30] MEDS ORDERED: IBUP-2213 PO (15:14)
[2022-05-30 15:24] VITALS: BP 126/78
== END 2022-05-30 15:25 | disposition home or self-care (01) ==
LOC: MED 14:25
DX: M25.552 Pain in left hip (principal); R00.0 Tachycardia, unspecified
CPT/HCPCS: 99282

== ENCOUNTER 2022-06-06 15:11 | Emergency (ER) | payer OTHER ==
[~2022-06-06 15:11] MED LIST changes: +IBUP-2213 PO
--- NOTE | 2022-06-06 15:32 | NUR ---
PT CALLED NOT FOUND IN LOBBY
--- NOTE | 2022-06-06 15:55 | NUR ---
CALLED PT NOT FOUND IN LOBBY
--- NOTE | 2022-06-06 16:08 | NUR ---
PATIENT LEFT WITHOUT BEING SEEN BY DR. SOSA. NO FURTHER CARE PROVIDED FOR PATIENT.
== END 2022-06-06 15:32 | disposition left against medical advice (07) ==
LOC: MED 15:11
DX: M25.559 Pain in unspecified hip (principal); Z53.21 Procedure and treatment not carried out due to patient leaving prior to being seen by health care provider

== ENCOUNTER 2022-06-12 17:39 | Emergency (ER) | payer OTHER ==
[~2022-06-12] VITALS: Ht 172.7 cm; Wt 67.2 kg
[2022-06-12 18:35] VITALS: BP 134/92
--- NOTE | 2022-06-12 21:12 | NUR ---
pt called from inside and outside, no response
--- NOTE | 2022-06-12 21:12 | NUR ---
PATIENT LEFT WITHOUT BEING SEEN BY DR. SOSA. NO FURTHER CARE PROVIDED FOR PATIENT.
--- NOTE | 2022-06-12 21:20 | NUR ---
CALLED FOT THE SECOND TIME , NO RESPONSE
--- NOTE | 2022-06-12 21:27 | NUR ---
CALLED FOR THE THIRD TIME , NO RESPONSE
== END 2022-06-12 21:12 | disposition left against medical advice (07) ==
LOC: MED 17:39
DX: Z76.0 Encounter for issue of repeat prescription (principal); Z53.21 Procedure and treatment not carried out due to patient leaving prior to being seen by health care provider

== ENCOUNTER 2022-06-28 12:19 | Emergency (ER) | payer OTHER ==
[~2022-06-28] VITALS: Ht 160 cm; Wt 61.2 kg
[2022-06-28 12:43] VITALS: BP 121/74
--- NOTE | 2022-06-28 12:44 | NUR ---
PT WALKED OUT OF THE HOSPITAL AFTER HAVING HR CHECKED
--- NOTE | 2022-06-28 12:44 | NUR ---
PATIENT LEFT WITHOUT BEING SEEN BY DR. JONES. NO FURTHER CARE PROVIDED FOR PATIENT.
== END 2022-06-28 12:44 | disposition left against medical advice (07) ==
LOC: MED 12:19
DX: R00.9 Unspecified abnormalities of heart beat (principal); Z53.21 Procedure and treatment not carried out due to patient leaving prior to being seen by health care provider

== ENCOUNTER 2022-07-29 12:34 | Emergency (ER) | payer OTHER ==
[~2022-07-29] VITALS: Ht 172.7 cm; Wt 53.1 kg
[2022-07-29 12:37] VITALS: BP 133/75
--- NOTE | 2022-07-29 12:42 | NUR ---
PT WALKED OUT AFTER TRIAGE STATING THAT SHE'S "GOING TO TALK TO A COUNSELOR"
--- NOTE | 2022-07-29 12:43 | NUR ---
PATIENT LEFT WITHOUT BEING SEEN BY DR. ABREU. NO FURTHER CARE PROVIDED FOR PATIENT.
== END 2022-07-29 12:43 | disposition left against medical advice (07) ==
LOC: MED 12:34
DX: R00.0 Tachycardia, unspecified (principal); Z53.21 Procedure and treatment not carried out due to patient leaving prior to being seen by health care provider

== ENCOUNTER 2022-08-05 18:00 | Emergency (ER) | payer OTHER ==
[~2022-08-05] VITALS: Ht 172.7 cm; Wt 68.0 kg
--- NOTE | 2022-08-05 18:34 | NUR ---
CALLED TO TRIAGE NO ANSWER
--- NOTE | 2022-08-05 19:01 | NUR ---
SECOND CALL TO TRIAGE NO ANSWER
[2022-08-05 19:24] VITALS: BP 124/68
--- NOTE | 2022-08-05 19:55 | NUR ---
CALLED TO SEE NO ANSWER
--- NOTE | 2022-08-05 20:07 | NUR ---
CALLED FOR EXAM, NO ANSWER. PT LWBS
== END 2022-08-05 18:34 | disposition left against medical advice (07) ==
LOC: MED 18:00
DX: R10.9 Unspecified abdominal pain (principal); Z53.21 Procedure and treatment not carried out due to patient leaving prior to being seen by health care provider

== ENCOUNTER 2022-08-09 15:03 | Emergency (ER) | payer OTHER ==
[~2022-08-09] VITALS: Ht 172.7 cm; Wt 64.9 kg
[2022-08-09 15:09] VITALS: BP 112/77
[2022-08-09] MEDS ORDERED: NYSTRO TP (16:19)
[2022-08-09] MEDS ORDERED: FLUC150T PO (16:19)
[2022-08-09] MEDS ORDERED: MICO2CRE VG (16:19)
[2022-08-09 16:24] VITALS: BP 112/77
== END 2022-08-09 16:24 | disposition home or self-care (01) ==
LOC: MED 15:03
DX: B37.31 Acute candidiasis of vulva and vagina (principal); I10 Essential (primary) hypertension; Z79.899 Other long term (current) drug therapy
CPT/HCPCS: 99283

== ENCOUNTER 2022-08-23 01:58 | Emergency (ER) | payer OTHER ==
[~2022-08-23] VITALS: Ht 172.7 cm; Wt 68.0 kg
[~2022-08-23 01:58] MED LIST changes: +FLUC150T PO; +MICO2CRE VG; +NYSTRO TP
[2022-08-23 02:13] VITALS: BP 124/76
--- NOTE | 2022-08-23 02:16 | NUR ---
TO BED AMBULATORY
--- NOTE | 2022-08-23 02:28 | NUR ---
asked patient to urinate. unable to urinate at this time as patient used the bathroom prior to coming to the ER.
[2022-08-23] MEDS ORDERED: IBUP-2213 PO (02:49)
[2022-08-23] MEDS ORDERED: ACET-10509 PO (02:49)
[2022-08-23] MEDS ORDERED: METO25TA14 PO (02:49)
--- NOTE | 2022-08-23 03:00 | NUR ---
Patient discharged with v/s stable. Written and verbal after care instructions given and explained. Patient alert, oriented and verbalized understanding of instructions. Ambulatory with steady gait. All questions addressed prior to discharge. ID band removed. Patient advised to follow up with PMD. Rx of Tylenol extra strength tab, ibuprofen, and metoprolol given. Patient educated on indication of medication including possible reaction and side effects. Opportunity to ask questions provided and answered.
== END 2022-08-23 03:00 | disposition home or self-care (01) ==
LOC: MED 01:58
DX: I10 Essential (primary) hypertension (principal); Z76.0 Encounter for issue of repeat prescription; Z79.899 Other long term (current) drug therapy; Z98.890 Other specified postprocedural states
CPT/HCPCS: 99281

== ENCOUNTER 2022-11-13 10:34 | Emergency (ER) | payer OTHER ==
[~2022-11-13] VITALS: Ht 172.7 cm; Wt 65.8 kg
[2022-11-13 10:48] VITALS: BP 114/76
--- NOTE | 2022-11-13 12:10 | NUR ---
PA JONES AT PT SIDE FOR EVAL
[2022-11-13] MEDS ORDERED: ALBU0.0912 IH (12:52)
[2022-11-13] MEDS ORDERED: FLONAS NS (12:52)
[2022-11-13] MEDS ORDERED: [UNRECOGNIZED DRUG - CODE] PO (12:52)
--- NOTE | 2022-11-13 13:00 | NUR ---
Patient discharged with v/s stable. Written and verbal after care instructions ABOUT UPPER RESPIRATPRY INFECTION given and explained. Patient alert, oriented and verbalized understanding of instructions. Ambulatory with steady gait. All questions addressed prior to discharge. ID band removed. Patient advised to follow up with PMD. Rx of ALBUTEROL, FLONASE, RESCON-GG given. Patient educated on indication of medication including possible reaction and side effects. Opportunity to ask questions provided and answered.
== END 2022-11-13 13:00 | disposition home or self-care (01) ==
LOC: MED 10:34
DX: J06.9 Acute upper respiratory infection, unspecified (principal); I10 Essential (primary) hypertension; Z79.899 Other long term (current) drug therapy
CPT/HCPCS: 99283

== ENCOUNTER 2023-03-27 17:51 | Emergency (ER) | payer OTHER ==
[~2023-03-27] VITALS: Ht 172.7 cm; Wt 68.9 kg
[~2023-03-27 17:51] MED LIST changes: +[UNRECOGNIZED DRUG - CODE] PO
[2023-03-27 18:18] VITALS: BP 121/75
--- NOTE | 2023-03-27 18:21 | NUR ---
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 6/10 PAIN AT THIS TIME. DENIES ANY CURRENT PUS OR BLOOD DRAINAGE FROM SITE. PMH: DENIES NKA
[2023-03-27] MEDS ORDERED: LIDOCAINE OINTMENT 5% 35 GM TUBE TP ONE (19:10)
[2023-03-27] MEDS ORDERED: LIDOCAINE MPF 1% 10 MG/ML VIAL INJ ONE (19:10)
[2023-03-27 19:25] VITALS: BP 121/75
--- NOTE | 2023-03-27 19:25 | NUR ---
PATIENT ELOPED FROM FACILITY. DISCHARGE INSTRUCTIONS NOT GIVEN TO PATIENT. PA. RASHID NOTIFIED.
== END 2023-03-27 19:25 | disposition left against medical advice (07) ==
LOC: MED 17:51
DX: N75.0 Cyst of Bartholin's gland (principal); I10 Essential (primary) hypertension; Z79.899 Other long term (current) drug therapy
CPT/HCPCS: 99281

== ENCOUNTER 2023-04-11 21:59 | Emergency (ER) | payer OTHER ==
[~2023-04-11] VITALS: Ht 172.7 cm; Wt 68.0 kg
[2023-04-11 22:23] VITALS: BP 105/68
--- NOTE | 2023-04-11 22:23 | NUR ---
urning, frequent and painful urination 8/10 for 7 days. no meds taken Hx na
--- NOTE | 2023-04-11 22:25 | NUR ---
pt in the lobby
[2023-04-11] MEDS ORDERED: PYR100 PO (23:04)
[2023-04-11] MEDS ORDERED: NITR100C1 PO (23:04)
[2023-04-11 23:46] VITALS: BP 105/68
--- NOTE | 2023-04-11 23:47 | NUR ---
Patient discharged with v/s stable. Written and verbal after care instructions given and explained. Patient alert, oriented and verbalized understanding of instructions. Ambulatory with steady gait. All questions addressed prior to discharge. ID band removed. Patient advised to follow up with PMD. Rx of nitrofurontoin, pyridium given. Patient educated on indication of medication including possible reaction and side effects. Opportunity to ask questions provided and answered.
== END 2023-04-11 23:47 | disposition home or self-care (01) ==
LOC: MED 21:59
DX: R30.0 Dysuria (principal); R35.0 Frequency of micturition; I10 Essential (primary) hypertension; Z79.899 Other long term (current) drug therapy
CPT/HCPCS: 81025; 99283

== ENCOUNTER 2023-06-05 17:51 | Emergency (ER) | payer OTHER ==
[~2023-06-05] VITALS: Ht 172.7 cm; Wt 67.6 kg
[~2023-06-05 17:51] MED LIST changes: +NITR100C1 PO; +PYR100 PO
[2023-06-05 18:14] VITALS: BP 139/86; PULSE 103; RESP 20; TEMP 98.1; O2SAT 99
[2023-06-05 18:42] VITALS: BP 139/86; PULSE 103; RESP 20; TEMP 98.1; O2SAT 99
--- NOTE | 2023-06-05 18:42 | NUR ---
PATIENT LEFT WITHOUT BEING SEEN BY DR. JOAQUIN. NO FURTHER CARE PROVIDED FOR PATIENT.
== END 2023-06-05 18:43 | disposition left against medical advice (07) ==
LOC: MED 17:51
DX: F41.9 Anxiety disorder, unspecified (principal); Z53.21 Procedure and treatment not carried out due to patient leaving prior to being seen by health care provider
CPT/HCPCS: 99281

== ENCOUNTER 2023-07-08 18:29 | Emergency (ER) | payer OTHER ==
[~2023-07-08] VITALS: Ht 172.7 cm; Wt 67.8 kg
[2023-07-08 18:46] VITALS: BP 150/96; PULSE 115; RESP 20; TEMP 97.8; O2SAT 99
[2023-07-08] MEDS ORDERED: LORazepam 2 MG/ML VIAL ONE (20:11)
[2023-07-08] MEDS ORDERED: INTUBATION KIT MC ONE (20:11)
[2023-07-08] MEDS ORDERED: [UNRECOGNIZED DRUG - CODE] PO (20:17)
[2023-07-08] MEDS ORDERED: AMOX-1230 PO (20:17)
[2023-07-08] MEDS ORDERED: BENZ20GE11 MM (20:17)
== END 2023-07-08 21:57 | disposition home or self-care (01) ==
LOC: MED 18:29
DX: K08.89 Other specified disorders of teeth and supporting structures (principal); Z79.899 Other long term (current) drug therapy
CPT/HCPCS: 99281; J2060

== ENCOUNTER 2023-07-24 10:25 | Emergency (ER) | payer OTHER ==
[~2023-07-24] VITALS: Ht 172.7 cm; Wt 68.0 kg
[~2023-07-24 10:25] MED LIST changes: +AMOX-1230 PO; +BENZ20GE11 MM; +[UNRECOGNIZED DRUG - CODE] PO
[2023-07-24 10:31] VITALS: BP 127/95; PULSE 106; RESP 18; TEMP 98.8; O2SAT 99
[2023-07-24] MEDS ORDERED: IPRATROPIUM 0.02% 0.5 MG/2.5 ML NEBU INH ONE (10:40)
[2023-07-24] MEDS ORDERED: ALBUTEROL 0.083% 2.5 MG/3 ML NEBU INH ONE (10:40)
[2023-07-24 10:46] VITALS: PULSE 94; PULSE 98; PULSE 99; RESP 20; O2SAT 98
[2023-07-24] MEDS ORDERED: ALBU0.0912 INH (11:13)
[2023-07-24 11:22] VITALS: PULSE 92
== END 2023-07-24 11:19 | disposition home or self-care (01) ==
LOC: MED 10:25
DX: R06.02 Shortness of breath (principal); R03.0 Elevated blood-pressure reading, without diagnosis of hypertension; J45.909 Unspecified asthma, uncomplicated; F17.200 Nicotine dependence, unspecified, uncomplicated; Z79.899 Other long term (current) drug therapy
CPT/HCPCS: 94640; 99283; J7613; J7644

== ENCOUNTER 2023-10-06 02:01 | Emergency (ER) | payer OTHER ==
[~2023-10-06] VITALS: Ht 172.7 cm; Wt 68.0 kg
[~2023-10-06 02:01] MED LIST changes: +ALBU0.0912 INH
[2023-10-06 02:52] VITALS: BP 105/72; PULSE 82; RESP 22; TEMP 98; O2SAT 98
== END 2023-10-06 04:00 | disposition home or self-care (01) ==
LOC: MED 02:01
DX: R00.2 Palpitations (principal); J45.909 Unspecified asthma, uncomplicated; Z79.899 Other long term (current) drug therapy; Z79.2 Long term (current) use of antibiotics; Z79.1 Long term (current) use of non-steroidal anti-inflammatories (NSAID)
CPT/HCPCS: 93005; 99281; 99283

== ENCOUNTER 2024-02-02 07:18 | Emergency (ER) | payer OTHER ==
[~2024-02-02] VITALS: Ht 172.7 cm; Wt 72.2 kg
[2024-02-02 07:24] VITALS: BP 110/68; PULSE 89; RESP 18; TEMP 98.4; O2SAT 100
[2024-02-02] MEDS ORDERED: BACI-418 TP (07:55)
== END 2024-02-02 08:03 | disposition home or self-care (01) ==
LOC: MED 07:18
DX: L73.8 Other specified follicular disorders (principal); J45.909 Unspecified asthma, uncomplicated; Z79.1 Long term (current) use of non-steroidal anti-inflammatories (NSAID); Z79.899 Other long term (current) drug therapy
CPT/HCPCS: 99282; 99284

== ENCOUNTER 2024-03-04 18:22 | Emergency (ER) | payer OTHER ==
[~2024-03-04] VITALS: Ht 172.7 cm; Wt 68.0 kg
[~2024-03-04 18:22] MED LIST changes: +BACI-418 TP; -BENZ150C2 PO; +BENZ150C7 PO; -METO-744 PO; +METO25TE47 PO
[2024-03-04 18:51] VITALS: BP 127/82; PULSE 71; RESP 20; TEMP 97.5; O2SAT 99
[2024-03-04] MEDS ORDERED: DOPPLER MC ONE (19:15)
== END 2024-03-04 20:10 | disposition left against medical advice (07) ==
LOC: MED 18:22
DX: R00.0 Tachycardia, unspecified (principal); Z53.21 Procedure and treatment not carried out due to patient leaving prior to being seen by health care provider
CPT/HCPCS: 93005

== ENCOUNTER 2024-03-12 17:03 | Emergency (ER) | payer OTHER ==
[~2024-03-12] VITALS: Ht 172.7 cm; Wt 68.0 kg
[2024-03-12 17:10] VITALS: BP 119/77; PULSE 92; RESP 16; TEMP 98; O2SAT 99
[2024-03-12] MEDS ORDERED: CIPR7.5D2 OT (17:58)
[2024-03-12 18:10] VITALS: BP 119/77; PULSE 92; RESP 16; TEMP 98; O2SAT 99
== END 2024-03-12 18:10 | disposition home or self-care (01) ==
LOC: MED 17:03
DX: T16.1XXA Foreign body in right ear, initial encounter (principal); J45.909 Unspecified asthma, uncomplicated; Z98.890 Other specified postprocedural states; Z79.899 Other long term (current) drug therapy; X58.XXXA Exposure to other specified factors, initial encounter; Y92.89 Other specified places as the place of occurrence of the external cause; Y93.89 Activity, other specified; Y99.8 Other external cause status
CPT/HCPCS: 69200; 99284

== ENCOUNTER 2024-03-15 21:45 | Emergency (ER) | payer OTHER ==
[~2024-03-15] VITALS: Ht 172.7 cm; Wt 68.0 kg
[~2024-03-15 21:45] MED LIST changes: +CIPR7.5D2 OT
[2024-03-15 21:59] VITALS: BP 121/82; PULSE 88; RESP 16; TEMP 96.5; O2SAT 99
[2024-03-15] MEDS ORDERED: LIDO100S PO (22:11)
[2024-03-15] MEDS ORDERED: PENI500T20 PO (22:11)
== END 2024-03-15 22:17 | disposition home or self-care (01) ==
LOC: MED 21:45
DX: K04.7 Periapical abscess without sinus (principal); Z79.899 Other long term (current) drug therapy
CPT/HCPCS: 99283

== ENCOUNTER 2024-07-07 15:57 | Emergency (ER) | payer OTHER ==
[~2024-07-07] VITALS: Ht 172.7 cm; Wt 73.9 kg
[~2024-07-07 15:57] MED LIST changes: -ACET-10509 PO; +ACET500T99 PO; +LIDO100S PO; +PENI500T20 PO
[2024-07-07 16:12] VITALS: BP 130/82; PULSE 73; RESP 18; TEMP 98.8; O2SAT 99
[2024-07-07] MEDS ORDERED: LIDO100S PO (16:36)
[2024-07-07] MEDS: HYDROcodone/APAP 5/325 MG 1 TAB TAB PO ONE (16:52)
--- NOTE | 2024-07-07 17:30 | NUR ---
Patient discharged with v/s stable. Written and verbal after care instructions given FOR DENTAL PAIN Patient alert, oriented and verbalized understanding of instructions. Ambulatory with steady gait. All questions addressed prior to discharge. ID band removed. Patient advised to follow up with PMD. Rx of LIDOCAINE given. Opportunity to ask questions provided and answered.
== END 2024-07-07 17:30 | disposition home or self-care (01) ==
LOC: MED 15:57
DX: K08.89 Other specified disorders of teeth and supporting structures (principal); J45.909 Unspecified asthma, uncomplicated; Z79.2 Long term (current) use of antibiotics; Z79.1 Long term (current) use of non-steroidal anti-inflammatories (NSAID); Z79.899 Other long term (current) drug therapy
CPT/HCPCS: 99283

== ENCOUNTER 2024-07-08 01:57 | Emergency (ER) | payer OTHER ==
[~2024-07-08] VITALS: Ht 172.7 cm; Wt 68.0 kg
[2024-07-08 02:13] VITALS: BP 126/80; PULSE 69; RESP 18; TEMP 99.5; O2SAT 98
[2024-07-08] MEDS: KETOROLAC 60 MG/2 ML VIAL IM ONE (03:33)
[2024-07-08 03:50] VITALS: BP 126/80; PULSE 69; RESP 18; TEMP 99.5; O2SAT 98
== END 2024-07-08 03:50 | disposition home or self-care (01) ==
LOC: MED 01:57
DX: K08.89 Other specified disorders of teeth and supporting structures (principal); Z72.89 Other problems related to lifestyle; J45.909 Unspecified asthma, uncomplicated; Z79.899 Other long term (current) drug therapy
CPT/HCPCS: 96372; 99283; J1885

== ENCOUNTER 2024-07-09 08:03 | Emergency (ER) | payer OTHER ==
[~2024-07-09] VITALS: Ht 172.7 cm; Wt 68.0 kg
[2024-07-09 08:06] VITALS: BP 114/75; PULSE 62; RESP 20; TEMP 97.4; O2SAT 99
[2024-07-09 08:31] LABS: APPEARANCE,URINE HAZY (CLEAR); BILIRUBIN,URINE NEGATIVE (NEGATIVE); BLOOD, URINE 1+ (NEGATIVE); COLOR,URINE YELLOW (YELLOW); LEUKOCYTE ESTERASE ,URINE NEGATIVE (NEGATIVE); NITRITE, URINE NEGATIVE (NEGATIVE); PROTEIN,URINE 1+ (NEGATIVE); UGLUCOSE NEGATIVE (NEGATIVE); UROBILINOGEN,URINE 0.2 EU/dL (0.2 - 1)
[2024-07-09 09:01] LABS: BACTERIA,URINE 2+ /HPF (None Seen); RBC,URINE 0-5 /HPF (0-5); SQUAMOUS EPITHELIAL CELL,UR 20-50 /LPF (0-3 (FEW)); WBC,URINE 0-5 /HPF (0-5)
[2024-07-09] MEDS: FLUCONAZOLE 100 MG TAB PO ONE (09:36)
[2024-07-10] MEDS ORDERED: CHLO473S62 PO (04:02)
[2024-07-10] MEDS ORDERED: IBUP-1842 PO (04:03)
[2024-07-10] MEDS ORDERED: KETO10TA2 PO (17:45)
[2024-07-10] MEDS ORDERED: AMOX1TAB8 PO (17:45)
[2024-07-10] MEDS ORDERED: BENZ7GEL5 MM (17:45)
== END 2024-07-09 09:56 | disposition home or self-care (01) ==
LOC: MED 08:03
DX: R30.0 Dysuria (principal); J45.909 Unspecified asthma, uncomplicated; Z79.899 Other long term (current) drug therapy
CPT/HCPCS: 81001; 81025; 87086; 99283

== ENCOUNTER 2024-07-10 03:10 | Emergency (ER) | payer OTHER ==
[~2024-07-10] VITALS: Ht 172.7 cm; Wt 68.0 kg
[2024-07-10 03:28] VITALS: BP 114/72; PULSE 83; RESP 18; TEMP 97.8; O2SAT 98
[2024-07-10] MEDS ORDERED: CHLO473S62 PO (04:02)
[2024-07-10] MEDS ORDERED: IBUP-1842 PO (04:03)
[2024-07-10] MEDS: KETOROLAC 30 MG/ML VIAL IM ONE (04:09)
[2024-07-10] MEDS: ACETAMINOPHEN EXTRA STRENGTH 500 MG TAB PO ONE (04:12)
[2024-07-10 05:28] VITALS: BP 114/72; PULSE 83; RESP 18; TEMP 97.8; O2SAT 98
[2024-07-10] MEDS ORDERED: KETO10TA2 PO (17:45)
[2024-07-10] MEDS ORDERED: AMOX1TAB8 PO (17:45)
[2024-07-10] MEDS ORDERED: BENZ7GEL5 MM (17:45)
== END 2024-07-10 05:28 | disposition home or self-care (01) ==
LOC: MED 03:10
DX: K08.89 Other specified disorders of teeth and supporting structures (principal); I10 Essential (primary) hypertension; J45.909 Unspecified asthma, uncomplicated; Z79.1 Long term (current) use of non-steroidal anti-inflammatories (NSAID); Z79.2 Long term (current) use of antibiotics; Z79.899 Other long term (current) drug therapy
CPT/HCPCS: 96372; 99283; J1885

== ENCOUNTER 2024-07-10 16:02 | Emergency (ER) | payer OTHER ==
[~2024-07-10] VITALS: Ht 172.7 cm; Wt 68.0 kg
[~2024-07-10 16:02] MED LIST changes: +CHLO473S62 PO; +IBUP-1842 PO
[2024-07-10 16:51] VITALS: BP 128/76; PULSE 82; RESP 16; TEMP 98.6; O2SAT 97
[2024-07-10] MEDS ORDERED: KETO10TA2 PO (17:45)
[2024-07-10] MEDS ORDERED: AMOX1TAB8 PO (17:45)
[2024-07-10] MEDS ORDERED: BENZ7GEL5 MM (17:45)
[2024-07-10] MEDS: KETOROLAC 30 MG/ML VIAL IM ONE (18:06)
== END 2024-07-10 18:40 | disposition home or self-care (01) ==
LOC: MED 16:02
DX: K04.7 Periapical abscess without sinus (principal); J45.909 Unspecified asthma, uncomplicated; I10 Essential (primary) hypertension; E05.90 Thyrotoxicosis, unspecified without thyrotoxic crisis or storm; Z79.899 Other long term (current) drug therapy
CPT/HCPCS: 96372; 99283; J1885

== ENCOUNTER 2024-08-14 04:20 | Emergency (ER) | payer OTHER ==
[~2024-08-14] VITALS: Ht 172.7 cm; Wt 68.0 kg
[~2024-08-14 04:20] MED LIST changes: +AMOX1TAB8 PO; +BENZ7GEL5 MM; +KETO10TA2 PO
[2024-08-14 04:22] VITALS: BP 107/81; PULSE 83; RESP 20; TEMP 98; O2SAT 98
[2024-08-14 04:40] VITALS: BP 107/81; PULSE 83; RESP 20; TEMP 98; O2SAT 98
[2024-08-14] MEDS ORDERED: MECL-303 PO (04:42)
[2024-08-14] MEDS ORDERED: CARB15SO23 OP (04:42)
== END 2024-08-14 05:02 | disposition home or self-care (01) ==
LOC: MED 04:20
DX: R42 Dizziness and giddiness (principal); H04.129 Dry eye syndrome of unspecified lacrimal gland; J45.909 Unspecified asthma, uncomplicated; I10 Essential (primary) hypertension; Z79.899 Other long term (current) drug therapy
CPT/HCPCS: 99281; 99283

== ENCOUNTER 2024-08-16 02:00 | Emergency (ER) | payer OTHER ==
[~2024-08-16] VITALS: Ht 172.7 cm; Wt 68.0 kg
[~2024-08-16 02:00] MED LIST changes: +CARB15SO23 OP; +MECL-303 PO
[2024-08-16 02:24] VITALS: BP 120/83; PULSE 86; RESP 18; TEMP 97.7; O2SAT 99
[2024-08-16 02:50] VITALS: BP 120/83; PULSE 86; RESP 18; TEMP 97.7; O2SAT 99
[2024-08-17] MEDS ORDERED: ACET500T99 PO (01:08)
== END 2024-08-16 02:50 | disposition home or self-care (01) ==
LOC: MED 02:00
DX: M25.552 Pain in left hip (principal); Z76.0 Encounter for issue of repeat prescription; J45.909 Unspecified asthma, uncomplicated; I10 Essential (primary) hypertension; Z79.899 Other long term (current) drug therapy; Z98.890 Other specified postprocedural states
CPT/HCPCS: 99281

== ENCOUNTER 2024-08-17 00:45 | Emergency (ER) | payer OTHER ==
[~2024-08-17] VITALS: Ht 172.7 cm; Wt 73.9 kg
[2024-08-17 00:47] VITALS: BP 138/80; PULSE 86; RESP 19; TEMP 98.2; O2SAT 99
[2024-08-17] MEDS ORDERED: ACET500T99 PO (01:08)
[2024-08-17 01:20] VITALS: BP 138/80; PULSE 86; RESP 19; TEMP 98.2; O2SAT 99
== END 2024-08-17 01:20 | disposition home or self-care (01) ==
LOC: MED 00:45
DX: J45.909 Unspecified asthma, uncomplicated (principal); I10 Essential (primary) hypertension; Z76.0 Encounter for issue of repeat prescription; Z79.899 Other long term (current) drug therapy
CPT/HCPCS: 99281

== ENCOUNTER 2024-08-29 22:07 | Emergency (ER) | payer OTHER ==
[~2024-08-29] VITALS: Ht 172.7 cm; Wt 68.0 kg
[2024-08-29 22:14] VITALS: BP 114/95; PULSE 87; RESP 18; TEMP 98; O2SAT 99
== END 2024-08-30 00:20 | disposition left against medical advice (07) ==
LOC: MED 22:07
DX: R42 Dizziness and giddiness (principal); Z53.21 Procedure and treatment not carried out due to patient leaving prior to being seen by health care provider